=== PATIENT | female | born 1990 | race Caucasian/White ===

== ENCOUNTER 2018-10-07 18:03 | Emergency (ER) | payer SELFPAY ==
--- NOTE | 2018-10-07 19:52 | ER ---
Nurse's Notes [facility] Name: Wendi Oglesby Age: 28 yrs Sex: Female : 1990 Arrival Date: 10/07/2018 Time: 18:05 Bed 26 Private MD: Diagnosis: Presentation: 10/07 18:33 Presenting complaint: Patient states: "A friend gave me what I thought was an energy hb pill, but my sister is a medical special nurse and she told me it was really ecstasy laced with meth and coke. Now I feel numb and extremely horny and shaky and anxious.". Transition of care: patient was not received from another setting of care. Onset of symptoms was October 07, 2018 at 15:30. Risk Assessment: Do you want to hurt yourself or someone else? Patient reports no desire to harm self or others. Care prior to arrival: None. 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 - Social history:: Smoking status: Patient/guardian denies using tobacco. - Ebola Screening: : No symptoms or risks identified at this time. Vital Signs: 18:34 BP 125 / 101; Pulse 99; Resp 16; Temp 97.8; Pulse Ox 99% on R/A; Pain 0/10; hb ED Course: 18:05 Patient arrived in ED. rg4 18:34 Triage completed. hb 18:35 Arm band placed on. hb 19:25 Rafa Vaca MD is Attending Physician. rn Administered Medications: No medications were administered Outcome: 19:52 Eloped from waiting room, before seeing physician Time discovered patient gone: lp1 October 07, 2018 at 19:21 19:52 Patient left the ED. lp1 Signatures: Rafa Vaca MD MD rn Pena, Laura, RN RN lp1 Elizabeth Gleason RN RN hb Oren, Licha rg4
== END 2018-10-07 19:52 | disposition left against medical advice (07) ==
LOC: ER 18:03
DX: Z53.21 Procedure and treatment not carried out due to patient leaving prior to being seen by health care provider (principal)

== ENCOUNTER 2018-11-14 05:08 | Emergency (ER) | payer OTHER ==
[2018-11-14 06:31] LABS: Urine Blood NEGATIVE (NEG); Urine Glucose NEGATIVE (NEG); Urine Protein 2+ (NEG); Urine Specific Gravity >1.030 (1.005-1.030); Urine pH 5.5 (5.0-7.0)
[2018-11-14] MEDS ORDERED: HYDROCODONE/CHLORPHEN 5 ML/OSYR ONE (06:59)
--- NOTE | 2018-11-14 07:21 | EDPHYS ---
Physician Documentation [facility] Name: Wendi Oglesby Age: 28 yrs Sex: Female : 1990 Arrival Date: 11/14/2018 Time: 05:15 Bed 7 Private MD: ED Physician Lloyd Hedrick HPI: 11/14 06:28 This 28 yrs old Female presents to ER via Ambulatory with complaints of Cough.pm1 06:28 The patient or guardian reports cough. Onset: The symptoms/episode began/occurred 2 pm1 week(s) ago. Severity of symptoms: in the emergency department the symptoms are unchanged. Modifying factors: The symptoms are alleviated by OTC cold preparation, the symptoms are aggravated by nothing. Associated signs and symptoms: Pertinent negatives: chest pain, diarrhea, ear ache, fever, rhinorrhea, sore throat, vomiting, shortness of breath. The patient has been recently seen by a physician: with similar presenting complaints, [facility] for same complaint and given prescription for Tessalon Perles . 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 - Social history:: Smoking status: Patient uses tobacco products, smokes one-half pack cigarettes per day. - Ebola Screening: : Patient negative for fever greater than or equal to 101.5 degrees Fahrenheit, and additional compatible Ebola Virus Disease symptoms. ROS: 06:30 Constitutional: Negative for fever, chills, and weight loss, Eyes: Negative for injury, pm1 pain, redness, and discharge, ENT: Negative for injury, pain, and discharge, Neck: Negative for injury, pain, and swelling, Cardiovascular: Negative for chest pain, palpitations, and edema. 06:30 Abdomen/GI: Negative for abdominal pain, nausea, vomiting, diarrhea, and constipation, Back: Negative for injury and pain, : Negative for injury, bleeding, discharge, and swelling, MS/Extremity: Negative for injury and deformity, Skin: Negative for injury, rash, and discoloration, Neuro: Negative for headache, weakness, numbness, tingling, and seizure. 06:30 Respiratory: Positive for cough, Negative for shortness of breath, wheezing. Exam: 06:30 Constitutional: This is a well developed, well nourished patient who is awake, alert, pm1 and in no acute distress. Head/Face: Normocephalic, atraumatic. Eyes: Pupils equal round and reactive to light, extra-ocular motions intact. Lids and lashes normal. Conjunctiva and sclera are non-icteric and not injected. Cornea within normal limits. Periorbital areas with no swelling, redness, or edema. ENT: Nares patent. No nasal discharge, no septal abnormalities noted. Bilteral hearing aids. Tympanic membranes are normal and external auditory canals are clear. Oropharynx with no redness, swelling, or masses, exudates, or evidence of obstruction, uvula midline. Mucous membranes moist. Neck: Trachea midline, no thyromegaly or masses palpated, and no cervical lymphadenopathy. Supple, full range of motion without nuchal rigidity, or vertebral point tenderness. No Meningismus. Chest/axilla: Normal chest wall appearance and motion. Nontender with no deformity. No lesions are appreciated. Cardiovascular: Regular rate and rhythm with a normal S1 and S2. No gallops, murmurs, or rubs. No pulse deficits. Respiratory: Lungs have equal breath sounds bilaterally, clear to auscultation and percussion. No rales, rhonchi or wheezes noted. No increased work of breathing, no retractions or nasal flaring. Abdomen/GI: Soft, non-tender, with normal bowel sounds. No distension or tympany. No guarding or rebound. No evidence of tenderness throughout. Back: No spinal tenderness. No costovertebral tenderness. Full range of motion. Skin: Warm, dry with normal turgor. Normal color with no rashes, no lesions, and no evidence of cellulitis. MS/ Extremity: Pulses equal, no cyanosis. Neurovascular intact. Full, normal range of motion. 06:30 Neuro: Orientation: is normal, Motor: is normal, moves all fours. Vital Signs: 05:35 BP 116 / 87; Pulse 91; Resp 18 S; Temp 97.9(O); Pulse Ox 96% on R/A; Weight 123.38 kg jd3 (R); Height 5 ft. 7 in. (170.18 cm) (R); Pain 10/10; 06:58 BP 117 / 71; Pulse 73; Resp 14; Pulse Ox 98% ; bp 05:35 Body Mass Index 42.60 (123.38 kg, 170.18 cm) jd3 MDM: 06:04 Patient medically screened. pm1 06:31 Data reviewed: vital signs. Data interpreted: Pulse oximetry: on room air is 96 %. pm1 Interpretation: normal. 07:10 ED course: Chest x-ray: No acute cardiopulmonary process. pm1 07:19 Counseling: I had a detailed discussion with the patient and/or guardian regarding: the pm1 historical points, exam findings, and any diagnostic results supporting the discharge/admit diagnosis, lab results, radiology results, the need for outpatient follow up, to return to the emergency department if symptoms worsen or persist or if there are any questions or concerns that arise at home. 11/14 05:49 Order name: Flu; Complete Time: 06:27 [facility] 11/14 06:08 Order name: Urine Dipstick--Ancillary (enter results) [facility] 11/14 05:49 Order name: CXR XRAY [facility] 11/14 06:08 Order name: Urine --Ancillary (enter results) [facility] Administered Medications: 06:50 Drug: Tussionex Pennkinetic ER 5 ml Route: PO; jd3 06:59 Follow up: Response: Marked relief of symptoms bp Disposition: 11/14/18 07:20 Discharged to Home. Impression: Bronchitis, not specified as acute or chronic. - Condition is Stable. - Discharge Instructions: Acute Bronchitis, Adult, How to Use an Inhaler, Steps to Quit Smoking, Viral Respiratory Infection, Pyik-Sw-Enow, Cough, Adult. - Prescriptions for Medrol (Yandel) 4 mg Oral Tablets, Dose Pack - take 1 tablet by ORAL route as directed - follow package instructions; 1 packet. Albuterol Sulfate 90 mcg/actuation - inhale 1-2 puff by INHALATION route every 4-6 hours; 1 Inhaler. Bromfed DM 2- 30-10 mg/5 mL Oral syrup - take 10 milliliter by ORAL route every 4 hours As needed; 200 milliliter. - Medication Reconciliation Form, Thank You Letter, Antibiotic Education, Prescription Opioid Use form. - Follow up: Emergency Department; When: As needed; Reason: Worsening of condition. Follow up: Private Physician; When: 2 - 3 days; Reason: Recheck today's complaints, Continuance of care, Re-evaluation by your physician. - Problem is new. - Symptoms have improved. Signatures: Dispatcher [employer] EDNC Carlos Patino NP PROFESSIONAL ADVISOR pm1 Antonino Can, RN RN jd3 Des David RN RN bp Corrections: (The following items were deleted from the chart) 07:37 07:20 11/14/2018 07:20 Discharged to Home. Impression: Bronchitis, not specified as bp acute or chronic. Condition is Stable. Discharge Instructions: Acute Bronchitis, Adult, How to Use an Inhaler, Steps to Quit Smoking, Viral Respiratory Infection, Ovvp-Km-Htpw, Cough, Adult. Prescriptions for Tessalon Perles 100 mg Oral Capsule - take 1 capsule by ORAL route every 8 hours As needed; 15 capsule, Medrol (Yandel) 4 mg Oral Tablets, Dose Pack - take 1 tablet by ORAL route as directed - follow package instructions; 1 packet, Albuterol Sulfate 90 mcg/actuation - inhale 1-2 puff by INHALATION route every 4-6 hours; 1 Inhaler. and Forms are Medication Reconciliation Form, Thank You Letter, Antibiotic Education, Prescription Opioid Use. Follow up: Emergency Department; When: As needed; Reason: Worsening of condition. Follow up: Private Physician; When: 2 - 3 days; Reason: Recheck today's complaints, Continuance of care, Re-evaluation by your physician. Problem is new. Symptoms have improved. pm1
--- NOTE | 2018-11-14 07:21 | ER ---
Nurse's Notes [facility] Name: Wendi Oglesby Age: 28 yrs Sex: Female : 1990 Arrival Date: 11/14/2018 Time: 05:15 Bed 7 Private MD: Diagnosis: Bronchitis, not specified as acute or chronic Presentation: 11/14 05:29 Presenting complaint: Patient states: "I have had this cough for 2 weeks and it hasn't jd3 gone away. I have been to [facility] and all they did was give me give me Tensilon Pearls and sent home, no tests or nothing. I came here because I know this facility will actually help out figure what is going on and why this cough won't go away.". Transition of care: patient was not received from another setting of care. Onset of symptoms was November 14, 2018. Risk Assessment: Do you want to hurt yourself or someone else? Patient reports no desire to harm self or others. Initial Sepsis Screen: Does the patient meet any 2 criteria? No. Patient's initial sepsis screen is negative. Does the patient have a suspected source of infection? No. Patient's initial sepsis screen is negative. Care prior to arrival: None. 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 - Social history:: Smoking status: Patient uses tobacco products, smokes one-half pack cigarettes per day. - Ebola Screening: : Patient negative for fever greater than or equal to 101.5 degrees Fahrenheit, and additional compatible Ebola Virus Disease symptoms. Screenin:38 Abuse screen: Denies threats or abuse. Nutritional screening: No deficits noted. jd3 Tuberculosis screening: No symptoms or risk factors identified. Fall Risk Ambulatory Aid- None/Bed Rest/Nurse Assist (0 pts). Gait- Normal/Bed Rest/Wheelchair (0 pts) Mental Status- Oriented to own ability (0 pts). Total Burdick Fall Scale indicates No Risk (0-24 pts). Assessment: 05:36 General: Appears in no apparent distress. uncomfortable, Behavior is calm, cooperative, jd3 appropriate for age. Pain: Complains of pain in chest Quality of pain is described as pressure, pt reports pain in the chest because of couging. Neuro: Level of Consciousness is awake, alert, obeys commands, Oriented to person, place, time, situation, Appropriate for age. Cardiovascular: Capillary refill < 3 seconds Patient's skin is warm and dry. Respiratory: Reports cough that is persistent Airway is patent Respiratory effort is even, unlabored, Respiratory pattern is regular, symmetrical, Breath sounds are clear bilaterally. GI: No signs and/or symptoms were reported involving the gastrointestinal system. : No signs and/or symptoms were reported regarding the genitourinary system. EENT: No signs and/or symptoms were reported regarding the EENT system. Derm: Skin is intact, Skin is dry, Skin is normal, Skin temperature is warm. Musculoskeletal: Circulation, motion, and sensation intact. Range of motion: intact in all extremities. 06:57 Reassessment: RECD REPORT FROM MICHELLE BRAGG. 28YO WF P/W COUGH x2 WK. ALL CURRENT ORDERS bp COMPLETED, XRAY RESULTS PENDING FOR DISPO. 07:35 Reassessment: PT D/C HOME AMBULATORY WITH FAMILY, DX WITH BRONCHITIS. bp Vital Signs: 05:35 BP 116 / 87; Pulse 91; Resp 18 S; Temp 97.9(O); Pulse Ox 96% on R/A; Weight 123.38 kg jd3 (R); Height 5 ft. 7 in. (170.18 cm) (R); Pain 10/10; 06:58 BP 117 / 71; Pulse 73; Resp 14; Pulse Ox 98% ; bp 05:35 Body Mass Index 42.60 (123.38 kg, 170.18 cm) jd3 ED Course: 05:15 Patient arrived in ED. es 05:29 Antonino Can, RN is Primary Nurse. jd3 05:33 Triage completed. jd3 05:36 Arm band placed on. jd3 05:39 Patient has correct armband on for positive identification. Bed in low position. Call jd3 light in reach. Side rails up X 1. Adult w/ patient. 06:04 Carlos Patino NP is [facility]. pm1 06:04 Lloyd Hedrick MD is Attending Physician. pm1 06:07 X-ray completed. Portable x-ray completed in exam room. Patient tolerated procedure kw well. 06:08 CXR XRAY In Process Unspecified. EDMS 07:15 No provider procedures requiring assistance completed. Patient did not have IV access bp during this emergency room visit. Administered Medications: 06:50 Drug: Tussionex Pennkinetic ER 5 ml Route: PO; jd3 06:59 Follow up: Response: Marked relief of symptoms bp Outcome: 07:20 Discharge ordered by . pm1 07:36 Discharged to home ambulatory, with family. bp 07:36 Condition: stable 07:36 Discharge instructions given to patient, Instructed on discharge instructions, follow up and referral plans. medication usage, Demonstrated understanding of instructions, follow-up care, medications, Prescriptions given X 3. 07:37 Patient left the ED. bp Signatures: Dispatcher [employer] EDUT Elaine Vega Kimberlee Carlos Patino NP CONSTRUCTION AREA MANAGER pm1 Antonino Can RN RN jd3 Des David, RN RN bp
--- NOTE | 2018-11-14 08:38 | RAD REPORT ---
EXAM DESCRIPTION: Ludmila Single View11/14/2018 6:10 am CLINICAL HISTORY: Cough COMPARISON: None FINDINGS: The lungs appear clear of acute infiltrate. The heart is normal size IMPRESSION: No acute abnormalities displayed
== END 2018-11-14 07:37 | disposition home or self-care (01) ==
LOC: ER 05:08
DX: J40 Bronchitis, not specified as acute or chronic (principal); F32.9 Major depressive disorder, single episode, unspecified; F17.210 Nicotine dependence, cigarettes, uncomplicated; Z88.0 Allergy status to penicillin; Z88.5 Allergy status to narcotic agent
CPT/HCPCS: 71045; 81003; 81025; 87804; 99283

== ENCOUNTER 2019-01-04 12:19 | Emergency (ER) | payer OTHER ==
[2019-01-04 13:17] LABS: Urine Blood NEGATIVE (NEG); Urine Glucose NEGATIVE (NEG); Urine Protein NEGATIVE (NEG)
--- NOTE | 2019-01-04 14:15 | EDPHYS ---
Physician Documentation [facility] Name: Wendi Oglesby Age: 28 yrs Sex: Female : 1990 Arrival Date: 01/04/2019 Time: 12:23 Bed 25 Private MD: ED Physician Lloyd Hedrick HPI: 01/04 14:10 This 28 yrs old Female presents to ER via Ambulatory with complaints of gs Dizziness. 14:10 The patient presents with dizziness. Onset: The symptoms/episode began/occurred gs suddenly. Modifying factors: the symptoms are aggravated by movement of head. Associated signs and symptoms: Pertinent positives: near-syncope. Severity of symptoms: At their worst the symptoms were severe in the emergency department the symptoms have resolved. The patient has experienced similar episodes in the past, a few times. 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 ROS: 14:10 All other systems are negative. gs Exam: 14:10 Head/Face: Normocephalic, atraumatic. Eyes: Pupils equal round and reactive to light, gs extra-ocular motions intact. Lids and lashes normal. Conjunctiva and sclera are non-icteric and not injected. Cornea within normal limits. Periorbital areas with no swelling, redness, or edema. ENT: Nares patent. No nasal discharge, no septal abnormalities noted. Tympanic membranes are normal and external auditory canals are clear. Oropharynx with no redness, swelling, or masses, exudates, or evidence of obstruction, uvula midline. Mucous membranes moist. Neck: Trachea midline, no thyromegaly or masses palpated, and no cervical lymphadenopathy. Supple, full range of motion without nuchal rigidity, or vertebral point tenderness. No Meningismus. Chest/axilla: Normal chest wall appearance and motion. Nontender with no deformity. No lesions are appreciated. Cardiovascular: Regular rate and rhythm with a normal S1 and S2. No gallops, murmurs, or rubs. Normal PMI, no JVD. No pulse deficits. Respiratory: Lungs have equal breath sounds bilaterally, clear to auscultation and percussion. No rales, rhonchi or wheezes noted. No increased work of breathing, no retractions or nasal flaring. Abdomen/GI: Soft, non-tender, with normal bowel sounds. No distension or tympany. No guarding or rebound. No evidence of tenderness throughout. Back: No spinal tenderness. No costovertebral tenderness. Full range of motion. Skin: Warm, dry with normal turgor. Normal color with no rashes, no lesions, and no evidence of cellulitis. MS/ Extremity: Pulses equal, no cyanosis. Neurovascular intact. Full, normal range of motion. Neuro: Awake and alert, GCS 15, oriented to person, place, time, and situation. Cranial nerves II-XII grossly intact. Motor strength 5/5 in all extremities. Sensory grossly intact. Cerebellar exam normal. Normal gait. 14:10 Constitutional: The patient appears alert, awake. Vital Signs: 12:42 BP 113 / 69; Pulse 90; Resp 18; Temp 98.0; Pulse Ox 97% on R/A; Weight 125.19 kg; ph Height 5 ft. 5 in. (165.10 cm); Pain 8/10; 13:32 BP 111 / 61 Supine; Pulse 65; lt1 13:32 BP 116 / 67 Sitting; Pulse 67; lt1 13:32 BP 116 / 77 Standing; Pulse 74; lt1 12:42 Body Mass Index 45.93 (125.19 kg, 165.10 cm) ph MDM: 13:54 Patient medically screened. 14:10 Differential diagnosis: idiopathic dizziness, vertigo. Data reviewed: vital signs, nurses notes. Response to treatment: the patient's symptoms have resolved after treatment, and as a result, I will discharge patient. 01/04 13:08 Order name: Urine Dipstick--Ancillary (enter results); Complete Time: 13:37 bd 01/04 12:56 Order name: Urine Test (obtain specimen); Complete Time: 13:03 01/04 12:56 Order name: Urine Dipstick-Ancillary (obtain specimen); Complete Time: 13:03 01/04 13:08 Order name: Urine --Ancillary (enter results); Complete Time: 13:37 bd Administered Medications: No medications were administered Disposition: 01/04/19 14:15 Discharged to Home. Impression: Benign paroxysmal vertigo. - Condition is Stable. - Discharge Instructions: Benign Positional Vertigo, Form - Return To Work. - Work release form, Medication Reconciliation Form, Thank You Letter, Antibiotic Education, Prescription Opioid Use form. - Follow up: Private Physician; When: 2 - 3 days; Reason: Re-evaluation by your physician. Signatures: Dispatcher [employer] [facility] Martín Youngblood RN RN la1 Sole Ennis RN RN HedrickLloyd MD MD gs Corrections: (The following items were deleted from the chart) 13:08 12:57 UA MICROSCOPIC+U.LAB.BRZ ordered. [facility] EDME 14:27 14:15 01/04/2019 14:15 Discharged to Home. Impression: Benign paroxysmal vertigo. la1 Condition is Stable. Forms are Medication Reconciliation Form, Thank You Letter, Antibiotic Education, Prescription Opioid Use. Follow up: Private Physician; When: 2 - 3 days; Reason: Re-evaluation by your physician. gs
--- NOTE | 2019-01-04 14:15 | ER ---
Nurse's Notes [facility] Name: Wendi Oglesby Age: 28 yrs Sex: Female : 1990 Arrival Date: 01/04/2019 Time: 12:23 Bed 25 Private MD: Diagnosis: Benign paroxysmal vertigo Presentation: 01/04 12:40 Presenting complaint: Patient states: " I almost passed out at work when I stood up and ph they sent me home." Pt reports slight dizziness and pain in medina legs and numbness in medina arms, denies chest pain, SOB. Transition of care: patient was not received from another setting of care. Onset of symptoms was January 04, 2019. Risk Assessment: Do you want to hurt yourself or someone else? Patient reports no desire to harm self or others. Initial Sepsis Screen: Does the patient meet any 2 criteria? No. Patient's initial sepsis screen is negative. Does the patient have a suspected source of infection? No. Patient's initial sepsis screen is negative. Care prior to arrival: None. 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 Screenin:27 Abuse screen: Denies threats or abuse. Nutritional screening: No deficits noted. la1 Tuberculosis screening: No symptoms or risk factors identified. Fall Risk None identified. Assessment: 14:27 General: Appears in no apparent distress. Behavior is calm, cooperative. Pain: Denies la1 pain. Neuro: Level of Consciousness is awake, alert, obeys commands, Oriented to person, place, time, situation. Cardiovascular: Capillary refill < 3 seconds Patient's skin is warm and dry. Respiratory: Airway is patent Respiratory effort is even, unlabored, Respiratory pattern is regular, symmetrical. GI: No signs and/or symptoms were reported involving the gastrointestinal system. : No signs and/or symptoms were reported regarding the genitourinary system. Vital Signs: 12:42 BP 113 / 69; Pulse 90; Resp 18; Temp 98.0; Pulse Ox 97% on R/A; Weight 125.19 kg; ph Height 5 ft. 5 in. (165.10 cm); Pain 8/10; 13:32 BP 111 / 61 Supine; Pulse 65; lt1 13:32 BP 116 / 67 Sitting; Pulse 67; lt1 13:32 BP 116 / 77 Standing; Pulse 74; lt1 12:42 Body Mass Index 45.93 (125.19 kg, 165.10 cm) ph ED Course: 12:23 Patient arrived in ED. tw3 12:40 Martín Youngblood, RN is Primary Nurse. la1 12:42 Triage completed. ph 12:44 Arm band placed on. 12:50 Lloyd Hedrick MD is Attending Physician. 14:27 Call light in reach. la1 14:27 No provider procedures requiring assistance completed. Patient did not have IV access la1 during this emergency room visit. Administered Medications: No medications were administered Outcome: 14:15 Discharge ordered by . 14:27 Patient left the ED. la1 Signatures: Martín Youngblood RN RN la1 Sole Ennis RN RN Waed, [facility] tw3 Lloyd Hedrick MD MD [facility]
== END 2019-01-04 14:27 | disposition home or self-care (01) ==
LOC: ER 12:19
DX: H81.10 Benign paroxysmal vertigo, unspecified ear (principal); F32.9 Major depressive disorder, single episode, unspecified; Z88.0 Allergy status to penicillin; Z88.5 Allergy status to narcotic agent
CPT/HCPCS: 81003; 81025; 99281

== ENCOUNTER 2019-03-11 22:16 | Emergency (ER) | payer OTHER ==
--- OUTSIDE RECORDS SUMMARY | 2019-03-11 22:19 | XMS REPORT ---
:1990 Author [facility] Address [address] [place] [address] Dr. Orozco [address] [place] [id number] Care Team Providers Name Role Phone Unavailable Unavailable Unavailable Problems This patient has no known problems. Allergies, Adverse Reactions, Alerts This patient has no known allergies or adverse reactions. Medications This patient has no known medications.
--- NOTE | 2019-03-11 22:50 | EDPHYS ---
Physician Documentation [facility] Name: Wendi Oglesby Age: 28 yrs Sex: Female : 1990 Arrival Date: 03/11/2019 Time: 22:17 Bed 13 Private MD: ED Physician Zaid Cooley HPI: 03/11 22:39 This 28 yrs old Female presents to ER via Ambulatory with complaints of Mood michael Issue- Out of Medicine. 22:39 The patient presents to the emergency department with anxiety, depression. Onset: The michael symptoms/episode began/occurred today. Past psychiatric history: Prior diagnosis: depression, Psychiatric medications include: trazadon. Associated signs and symptoms: The patient has no apparent associated signs or symptoms. Severity of symptoms: At their worst the symptoms were mild in the emergency department the symptoms are unchanged. The patient has experienced similar episodes in the past, several times. 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 - Social history:: Smoking status: Patient uses tobacco products, smokes one-half pack cigarettes per day. - Ebola Screening: : No symptoms or risks identified at this time. - Family history:: not pertinent. ROS: 22:39 Constitutional: Negative for fever, chills, and weight loss, Eyes: Negative for injury, michael pain, redness, and discharge, ENT: Negative for injury, pain, and discharge, Neck: Negative for injury, pain, and swelling, Cardiovascular: Negative for chest pain, palpitations, and edema, Respiratory: Negative for shortness of breath, cough, wheezing, and pleuritic chest pain, Abdomen/GI: Negative for abdominal pain, nausea, vomiting, diarrhea, and constipation, Back: Negative for injury and pain, : Negative for injury, bleeding, discharge, and swelling, MS/Extremity: Negative for injury and deformity, Skin: Negative for injury, rash, and discoloration, Neuro: Negative for headache, weakness, numbness, tingling, and seizure, Allergy/Immunology: Negative for hives, rash, and allergies, Endocrine: Negative for neck swelling, polydipsia, polyuria, polyphagia, and marked weight changes, Hematologic/Lymphatic: Negative for swollen nodes, abnormal bleeding, and unusual bruising. 22:39 Psych: Positive for anxiety, depression, insomnia. Exam: 22:39 Constitutional: This is a well developed, well nourished patient who is awake, alert, michael and in no acute distress. Head/Face: Normocephalic, atraumatic. Eyes: Pupils equal round and reactive to light, extra-ocular motions intact. Lids and lashes normal. Conjunctiva and sclera are non-icteric and not injected. Cornea within normal limits. Periorbital areas with no swelling, redness, or edema. ENT: Nares patent. No nasal discharge, no septal abnormalities noted. Tympanic membranes are normal and external auditory canals are clear. Oropharynx with no redness, swelling, or masses, exudates, or evidence of obstruction, uvula midline. Mucous membranes moist. Neck: Trachea midline, no thyromegaly or masses palpated, and no cervical lymphadenopathy. Supple, full range of motion without nuchal rigidity, or vertebral point tenderness. No Meningismus. Chest/axilla: Normal chest wall appearance and motion. Nontender with no deformity. No lesions are appreciated. Cardiovascular: Regular rate and rhythm with a normal S1 and S2. No gallops, murmurs, or rubs. Normal PMI, no JVD. No pulse deficits. Respiratory: Lungs have equal breath sounds bilaterally, clear to auscultation and percussion. No rales, rhonchi or wheezes noted. No increased work of breathing, no retractions or nasal flaring. Abdomen/GI: Soft, non-tender, with normal bowel sounds. No distension or tympany. No guarding or rebound. No evidence of tenderness throughout. Back: No spinal tenderness. No costovertebral tenderness. Full range of motion. Skin: Warm, dry with normal turgor. Normal color with no rashes, no lesions, and no evidence of cellulitis. MS/ Extremity: Pulses equal, no cyanosis. Neurovascular intact. Full, normal range of motion. Neuro: Awake and alert, GCS 15, oriented to person, place, time, and situation. Cranial nerves II-XII grossly intact. Motor strength 5/5 in all extremities. Sensory grossly intact. Cerebellar exam normal. Normal gait. 22:39 Psych: Behavior/mood is pleasant, Affect is calm, Oriented to person, place, time, Patient has no thoughts/intents to harm self or others. Judgement / Insight is normal. Memory is normal. Delusions/hallucinations are not present. Vital Signs: 22:32 BP 146 / 92; Pulse 98; Resp 18; Temp 97.6; Pulse Ox 100% on R/A; Weight 120.2 kg (R); ak1 Height 5 ft. 7 in. (170.18 cm) (R); Pain 0/10; 22:32 Body Mass Index 41.50 (120.20 kg, 170.18 cm) ak1 MDM: 22:31 Patient medically screened. [facility] 22:44 Data reviewed: vital signs, nurses notes. [facility] Administered Medications: 23:14 Drug: traZODONE 50 mg Route: PO; [facility] 23:14 Follow up: Response: Medication administered at discharge. 4 Disposition: 03/11/19 22:50 Discharged to Home. Impression: Major depressive disorder, recurrent, Anxiety disorder, unspecified. - Condition is Stable. - Discharge Instructions: Panic Attacks, Arthritis, Insomnia, Arthritis, [id number], Panic Attacks, Dbiy-sk-Wbam, Major Depressive Disorder. - Prescriptions for trazodone 50 mg Oral tablet - take 1 tablet by ORAL route one time; 30 tablet. Mobic 7.5 mg Oral Tablet - take 1 tablet by ORAL route once daily take with food; 20 tablet. - Medication Reconciliation Form, Thank You Letter, Antibiotic Education, Prescription Opioid Use, Work release form form. - Follow up: Private Physician; When: 2 - 3 days; Reason: Recheck today's complaints, Continuance of care, Re-evaluation by your physician. Follow up: Gwendolyn Vincent MD; When: 2 - 3 days; Reason: Recheck today's complaints, Continuance of care, Re-evaluation by your physician. - Problem is new. - Symptoms have improved. Signatures: Zaid Cooley MD MD cha Krenek, Amber, RN RN ak1 Malcolm Tsang RN RN jb4 Corrections: (The following items were deleted from the chart) 23:16 22:50 03/11/2019 22:50 Discharged to Home. Impression: Major depressive disorder, jb4 recurrent; Anxiety disorder, unspecified. Condition is Stable. Forms are Medication Reconciliation Form, Thank You Letter, Antibiotic Education, Prescription Opioid Use. Follow up: Private Physician; When: 2 - 3 days; Reason: Recheck today's complaints, Continuance of care, Re-evaluation by your physician. Follow up: Gwendolyn Vincent; When: 2 - 3 days; Reason: Recheck today's complaints, Continuance of care, Re-evaluation by your physician. Problem is new. Symptoms have improved. michael
--- NOTE | 2019-03-11 22:50 | ER ---
Nurse's Notes [facility] Name: Wendi Oglesby Age: 28 yrs Sex: Female : 1990 Arrival Date: 03/11/2019 Time: 22:17 Bed 13 Private MD: Diagnosis: Major depressive disorder, recurrent;Anxiety disorder, unspecified Presentation: 03/11 22:32 Presenting complaint: Patient states: out of trazodone medication and meloxicam ak1 medication. pt had an "episode at work" and can not return with out doctor note. Transition of care: patient was not received from another setting of care. Onset of symptoms is unknown. Risk Assessment: Do you want to hurt yourself or someone else? Patient reports no desire to harm self or others. Initial Sepsis Screen: Does the patient meet any 2 criteria? No. Patient's initial sepsis screen is negative. Does the patient have a suspected source of infection? No. Patient's initial sepsis screen is negative. Note pt stated she has an appointment with her PCP Dr. Vincent 04/02/19. Care prior to arrival: None. 22:32 Method Of Arrival: Ambulatory ak1 22:32 Acuity: SAURAV 5 ak1 Triage Assessment: 22:34 General: Appears in no apparent distress. Behavior is calm, cooperative. Pain: Denies ak1 pain. EENT: No signs and/or symptoms were reported regarding the EENT system. Neuro: Level of Consciousness is awake, alert, obeys commands, Oriented to person, place, time, situation, Scouring Train Operator Chief are equal bilaterally Moves all extremities. Gait is steady, Speech is normal. Cardiovascular: No deficits noted. Respiratory: No deficits noted. GI: No signs and/or symptoms were reported involving the gastrointestinal system. : No signs and/or symptoms were reported regarding the genitourinary system. Derm: No signs and/or symptoms reported regarding the dermatologic system. Musculoskeletal: No signs and/or symptoms reported regarding the musculoskeletal system. 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 - Social history:: Smoking status: Patient uses tobacco products, smokes one-half pack cigarettes per day. - Ebola Screening: : No symptoms or risks identified at this time. - Family history:: not pertinent. Screenin:35 Abuse screen: Denies threats or abuse. Denies injuries from another. Nutritional ak1 screening: No deficits noted. Tuberculosis screening: No symptoms or risk factors identified. Fall Risk None identified. Assessment: 23:15 General: Appears in no apparent distress. comfortable, Behavior is calm, cooperative, jb4 appropriate for age. Pain: Denies pain. Neuro: Level of Consciousness is awake, alert, obeys commands, Oriented to person, place, time, situation. Cardiovascular: Patient's skin is warm and dry. Respiratory: Airway is patent Respiratory effort is even, unlabored, Respiratory pattern is regular, symmetrical. GI: No signs and/or symptoms were reported involving the gastrointestinal system. : No signs and/or symptoms were reported regarding the genitourinary system. EENT: No signs and/or symptoms were reported regarding the EENT system. Derm: Skin is intact, Skin is pink, warm \\T\\ dry. Musculoskeletal: Circulation, motion, and sensation intact. Range of motion: intact in all extremities. Vital Signs: 22:32 BP 146 / 92; Pulse 98; Resp 18; Temp 97.6; Pulse Ox 100% on R/A; Weight 120.2 kg (R); ak1 Height 5 ft. 7 in. (170.18 cm) (R); Pain 0/10; 22:32 Body Mass Index 41.50 (120.20 kg, 170.18 cm) ak1 ED Course: 22:17 Patient arrived in ED. ds1 22:31 Zaid Cooley MD is Attending Physician. michael 22:34 Triage completed. ak1 22:34 Arm band placed on Patient placed in an exam room, on a stretcher, Patient notified of ak1 wait time. 22:35 Patient has correct armband on for positive identification. Bed in low position. Call ak1 light in reach. Side rails up X 1. Adult w/ patient. Pulse ox on. Sitter at bedside. 22:46 Gwendolyn Vincent MD is Referral Physician. [facility] 22:51 Malcolm Tsang, RN is Primary Nurse. jb4 23:15 No provider procedures requiring assistance completed. Patient did not have IV access jb4 during this emergency room visit. Administered Medications: 23:14 Drug: traZODONE 50 mg Route: PO; jb4 23:14 Follow up: Response: Medication administered at discharge. jb4 Outcome: 22:50 Discharge ordered by . michael 23:15 Discharged to home ambulatory, with family. jb4 23:15 Condition: stable 23:15 Discharge instructions given to patient, Instructed on discharge instructions, follow up and referral plans. medication usage, Demonstrated understanding of instructions, follow-up care, medications, Prescriptions given X 2. 23:16 Patient left the ED. jb4 Signatures: Zaid Cooley MD MD cha Sanford, Demi ds1 Taylor Liu, RN RN ak1 Malcolm Tsang, RN RN jb4
[2019-03-11] MEDS ORDERED: TRAZODONE 50 MG TABLET ONE (23:21)
[2019-03-12] MEDS ORDERED: HYDROCODONE/APAP 5/325 MG TAB ONE (01:28)
== END 2019-03-11 23:16 | disposition home or self-care (01) ==
LOC: ER 22:16
DX: F41.9 Anxiety disorder, unspecified (principal); F33.9 Major depressive disorder, recurrent, unspecified; Z88.5 Allergy status to narcotic agent; Z88.0 Allergy status to penicillin; F17.210 Nicotine dependence, cigarettes, uncomplicated
CPT/HCPCS: 99284

== ENCOUNTER 2019-03-17 18:25 | Emergency (ER) | payer OTHER ==
--- OUTSIDE RECORDS SUMMARY | 2019-03-17 18:27 | XMS REPORT ---
:1990 [facility] [address] [place] [address] Dr. Orozco [address] [place] [address] Care Team Providers Name Role Phone Unavailable Unavailable Unavailable Problems This patient has no known problems. Allergies, Adverse Reactions, Alerts This patient has no known allergies or adverse reactions. Medications This patient has no known medications.
--- NOTE | 2019-03-17 19:07 | EDPHYS ---
Physician Documentation [facility] Name: Wendi Oglesby Age: 28 yrs Sex: Female : 1990 Arrival Date: 03/17/2019 Time: 18:30 Bed 19 Private MD: Gwendolyn Vincent ED Physician Myles Bailey HPI: 03/17 19:14 This 28 yrs old Female presents to ER via Ambulatory with complaints of kb Anxiety. 19:14 Pt presents for refill of trazadone. States she has been out for almost a month. kb Reports insomnia and yelling at family members. Has an appt with PCP for refill on 04/02/19 but cannot wait any longer. . The patient has not experienced similar symptoms in the past. The patient has not recently seen a physician. Historical: - Allergies: 18:31 Codeine; hj 18:31 PENICILLINS; hj - Home Meds: 19:05 Benadryl Oral [Active]; clonazepam 1 mg Oral tab [Active]; hydroxyzine HCl 25 mg Oral cc3 tab [Active]; Melatonin Oral [Active]; trazodone 50 mg Oral tab [Active]; - PMHx: 18:31 Anxiety; Depression; hj - PSHx: 18:31 None; hj - Immunization history:: Adult Immunizations not up to date. - Social history:: Smoking status: unknown. - Ebola Screening: : No symptoms or risks identified at this time. ROS: 19:13 Constitutional: Negative for fever, chills, and weight loss, Neck: Negative for injury, kb pain, and swelling, Cardiovascular: Negative for chest pain, palpitations, and edema, Respiratory: Negative for shortness of breath, cough, wheezing, and pleuritic chest pain, Abdomen/GI: Negative for abdominal pain, nausea, vomiting, diarrhea, and constipation, Back: Negative for injury and pain, MS/Extremity: Negative for injury and deformity, Skin: Negative for injury, rash, and discoloration, Neuro: Negative for headache, weakness, numbness, tingling, and seizure, Psych: Negative for depression, anxiety, suicide ideation, homicidal ideation, and hallucinations. Exam: 19:13 Constitutional: This is a well developed, well nourished patient who is awake, alert, kb and in no acute distress. Head/Face: Normocephalic, atraumatic. ENT: Nares patent. No nasal discharge, no septal abnormalities noted. Tympanic membranes are normal and external auditory canals are clear. Oropharynx with no redness, swelling, or masses, exudates, or evidence of obstruction, uvula midline. Mucous membranes moist. Neck: Trachea midline, no thyromegaly or masses palpated, and no cervical lymphadenopathy. Supple, full range of motion without nuchal rigidity, or vertebral point tenderness. No Meningismus. Chest/axilla: Normal chest wall appearance and motion. Nontender with no deformity. No lesions are appreciated. Cardiovascular: Regular rate and rhythm with a normal S1 and S2. No gallops, murmurs, or rubs. Normal PMI, no JVD. No pulse deficits. Respiratory: Lungs have equal breath sounds bilaterally, clear to auscultation and percussion. No rales, rhonchi or wheezes noted. No increased work of breathing, no retractions or nasal flaring. Abdomen/GI: Soft, non-tender, with normal bowel sounds. No distension or tympany. No guarding or rebound. No evidence of tenderness throughout. Skin: Warm, dry with normal turgor. Normal color with no rashes, no lesions, and no evidence of cellulitis. MS/ Extremity: Pulses equal, no cyanosis. Neurovascular intact. Full, normal range of motion. Neuro: Awake and alert, GCS 15, oriented to person, place, time, and situation. Cranial nerves II-XII grossly intact. Motor strength 5/5 in all extremities. Sensory grossly intact. Cerebellar exam normal. Normal gait. Psych: Awake, alert, with orientation to person, place and time. Behavior, mood, and affect are within normal limits. Vital Signs: 18:32 BP 113 / 63; Pulse 90; Resp 18; Temp 97.4(TE); Pulse Ox 100% on R/A; Weight 120.2 kg; hj Height 5 ft. 7 in. (170.18 cm); Pain 0/10; 19:15 BP 110 / 67; Pulse 89; Resp 17 S; Pulse Ox 100% on R/A; cc3 18:32 Body Mass Index 41.50 (120.20 kg, 170.18 cm) MDM: 18:43 Patient medically screened. kb 19:13 Data reviewed: vital signs, nurses notes. Data interpreted: Pulse oximetry: on room air kb is 100 %. Interpretation: normal. Counseling: I had a detailed discussion with the patient and/or guardian regarding: the historical points, exam findings, and any diagnostic results supporting the discharge/admit diagnosis, the need for outpatient follow up, a family practitioner, to return to the emergency department if symptoms worsen or persist or if there are any questions or concerns that arise at home. Administered Medications: No medications were administered Disposition: 21:31 Co-signature as Attending Physician, Myles Bailey MD I agree with the assessment and kdr plan of care. Disposition: 03/17/19 19:06 Discharged to Home. Impression: Encounter for issue of repeat prescription. - Condition is Stable. - Discharge Instructions: Medicine Refill at the Emergency Department. - Prescriptions for trazodone 50 mg Oral tablet - take 1 tablet by ORAL route Every night; 4 tablet. - Medication Reconciliation Form, Thank You Letter, Antibiotic Education, Prescription Opioid Use form. - Follow up: Emergency Department; When: As needed; Reason: Worsening of condition. Follow up: Gwendolyn Vincent MD; When: 2 - 3 days; Reason: Recheck today's complaints, Continuance of care, Re-evaluation by your physician. Signatures: Ewa Vera, ANGELA-C HAND HARDENER-Myles Petty MD MD kdr Maldonado Victoria RN RN Riane Neal cc3 Corrections: (The following items were deleted from the chart) 19:47 19:06 03/17/2019 19:06 Discharged to Home. Impression: Encounter for issue of repeat cc3 prescription. Condition is Stable. Forms are Medication Reconciliation Form, Thank You Letter, Antibiotic Education, Prescription Opioid Use. Follow up: Emergency Department; When: As needed; Reason: Worsening of condition. Follow up: Gwendolyn Vincent; When: 2 - 3 days; Reason: Recheck today's complaints, Continuance of care, Re-evaluation by your physician. kb
--- NOTE | 2019-03-17 19:07 | ER ---
Nurse's Notes [facility] Name: Wendi Oglesby Age: 28 yrs Sex: Female : 1990 Arrival Date: 03/17/2019 Time: 18:30 Bed 19 Private MD: Gwendolyn Vincent Diagnosis: Encounter for issue of repeat prescription Presentation: 03/17 18:29 Presenting complaint: Patient states: i was out of my anxiety meds, trazodone 50 mg for hj almost a month now, i feel iffy, denies SI, and homicidal thoughts; i dont have an appt with my PCP till the 15 of this month;. Transition of care: patient was not received from another setting of care. Onset of symptoms was March 17, 2019. Risk Assessment: Do you want to hurt yourself or someone else? Patient reports no desire to harm self or others. Initial Sepsis Screen: Does the patient meet any 2 criteria? No. Patient's initial sepsis screen is negative. Does the patient have a suspected source of infection? No. Patient's initial sepsis screen is negative. Care prior to arrival: None. 18:29 Method Of Arrival: Ambulatory 18:29 Acuity: SAURAV 5 hj Triage Assessment: 19:05 General: Appears in no apparent distress. comfortable, Behavior is calm, cooperative, cc3 appropriate for age. Pain: Denies pain. Historical: - Allergies: 18:31 Codeine; hj 18:31 PENICILLINS; hj - Home Meds: 19:05 Benadryl Oral [Active]; clonazepam 1 mg Oral tab [Active]; hydroxyzine HCl 25 mg Oral cc3 tab [Active]; Melatonin Oral [Active]; trazodone 50 mg Oral tab [Active]; - PMHx: 18:31 Anxiety; Depression; hj - PSHx: 18:31 None; hj - Immunization history:: Adult Immunizations not up to date. - Social history:: Smoking status: unknown. - Ebola Screening: : No symptoms or risks identified at this time. Screenin:05 Abuse screen: Denies threats or abuse. Denies injuries from another. Nutritional cc3 screening: No deficits noted. Tuberculosis screening: No symptoms or risk factors identified. Fall Risk Ambulatory Aid- None/Bed Rest/Nurse Assist (0 pts). Gait- Normal/Bed Rest/Wheelchair (0 pts) Mental Status- Oriented to own ability (0 pts). Assessment: 19:05 General: Appears in no apparent distress. comfortable, Behavior is calm, cooperative, cc3 appropriate for age. Pain: Denies pain. Neuro: Level of Consciousness is awake, alert, obeys commands, Oriented to person, place, time, situation, Appropriate for age. Cardiovascular: Denies chest pain. Respiratory: Airway is patent Respiratory effort is even, unlabored, Respiratory pattern is regular, symmetrical. GI: Abdomen is round obese. : No signs and/or symptoms were reported regarding the genitourinary system. EENT: No signs and/or symptoms were reported regarding the EENT system. Derm: Skin is intact, is healthy with good turgor, Skin is pink, warm \T\ dry. normal. Musculoskeletal: Circulation, motion, and sensation intact. Range of motion: intact in all extremities. 19:40 Reassessment: Patient appears in no apparent distress at this time. Patient and/or cc3 family updated on plan of care and expected duration. Pain level reassessed. Patient is alert, oriented x 3, equal unlabored respirations, skin warm/dry/pink. EDMUND Vera discharged the patient home with prescription given. No IV cannula in situ. Patient left ER vitally stable and ambulatory. No valuables left in the patient's room. Patient denies pain at this time. Vital Signs: 18:32 BP 113 / 63; Pulse 90; Resp 18; Temp 97.4(TE); Pulse Ox 100% on R/A; Weight 120.2 kg; hj Height 5 ft. 7 in. (170.18 cm); Pain 0/10; 19:15 BP 110 / 67; Pulse 89; Resp 17 S; Pulse Ox 100% on R/A; cc3 18:32 Body Mass Index 41.50 (120.20 kg, 170.18 cm) ED Course: 18:30 Patient arrived in ED. dp 18:31 Gwendolyn Vincent MD is Private Physician. dp 18:31 Triage completed. hj 18:32 Arm band placed on left wrist. hj 18:36 Sole Ennis RN is Primary Nurse. ph 18:43 Ewa Vera F[facility]-C [facility]. kb 18:43 Rafa Vaca MD is Attending Physician. kb 19:05 Patient has correct armband on for positive identification. Bed in low position. Call cc3 light in reach. Side rails up X 1. Pulse ox on. NIBP on. 19:06 Myles Bailey MD is Attending Physician. kb 19:06 Gwendolyn Vincent MD is Referral Physician. kb 19:40 No provider procedures requiring assistance completed. Patient did not have IV access cc3 during this emergency room visit. Administered Medications: No medications were administered Outcome: : Discharge ordered by MD. kb 19:40 Discharged to home ambulatory, with friend. cc3 19:40 Condition: stable 19:40 Discharge instructions given to patient, Instructed on discharge instructions, follow up and referral plans. medication usage, Demonstrated understanding of instructions, follow-up care, medications, Prescriptions given X 1. 19:47 Patient left the ED. cc3 Signatures: Ewa Vera, PLUG SHAPER HAND-C PLUG SHAPER HAND-CkSole Galvan RN RN Maldonado Victoria RN RN Raine Roldan cc3 Obi Mcclain Corrections: (The following items were deleted from the chart) 18:32 18:29 Presenting complaint: Patient states: i was out of my anxiety meds, trazodone 50 hj mg for almost a month now, i feel iffy, denies SI, and homicidal thoughts; 18:33 18:29 Acuity: SAURAV 4 hj 18:33 18:32 Pulse 90bpm; Resp 18bpm; Pulse Ox 100% RA; Temp 97.4F Temporal; 120.2 kg; Height 5 ft. 7 in.; BMI: 41.5; Pain 0/10; hj
== END 2019-03-17 19:47 | disposition home or self-care (01) ==
LOC: ER 18:25
DX: Z76.0 Encounter for issue of repeat prescription (principal); F41.9 Anxiety disorder, unspecified; F32.9 Major depressive disorder, single episode, unspecified
CPT/HCPCS: 99283

== ENCOUNTER 2019-03-29 00:21 | Emergency (ER) | payer OTHER ==
--- OUTSIDE RECORDS SUMMARY | 2019-03-29 00:24 | XMS REPORT ---
:1990 [facility] Address [address] [place] [address] Dr. Orozco [address] [place] [id number] Care Team Providers Name Role Phone Unavailable Unavailable Unavailable Problems This patient has no known problems. Allergies, Adverse Reactions, Alerts This patient has no known allergies or adverse reactions. Medications This patient has no known medications.
--- NOTE | 2019-03-29 01:14 | ER ---
Nurse's Notes [facility] Name: Wendi Oglesby Age: 28 yrs Sex: Female : 1990 Arrival Date: 03/29/2019 Time: 00:24 Bed 14 Private MD: Diagnosis: Encounter for screening, unspecified Presentation: 03/29 00:33 Presenting complaint: Patient states: I woke up in tears severe tooth pain on the left jb4 upper side of my mouth. I am also out of trazodone. Transition of care: patient was not received from another setting of care. Onset of symptoms was March 29, 2019. Risk Assessment: Do you want to hurt yourself or someone else? Patient reports no desire to harm self or others. Initial Sepsis Screen: Does the patient meet any 2 criteria? No. Patient's initial sepsis screen is negative. Does the patient have a suspected source of infection? No. Patient's initial sepsis screen is negative. Care prior to arrival: None. 00:33 Method Of Arrival: Ambulatory jb4 00:33 Acuity: SAURAV 4 jb4 Historical: - Allergies: 00:35 Codeine; jb4 00:35 PENICILLINS; jb4 - Home Meds: 00:35 Benadryl Oral [Active]; clonazepam 1 mg Oral tab [Active]; hydroxyzine HCl 25 mg Oral jb4 tab [Active]; Melatonin Oral [Active]; trazodone 50 mg Oral tab [Active]; - PMHx: 00:35 Depression; Anxiety; jb4 - PSHx: 00:35 None; jb4 - Immunization history:: Adult Immunizations not up to date. - Social history:: Smoking status: Patient uses tobacco products, smokes one-half pack cigarettes per day, Patient uses alcohol, occasionally. - Ebola Screening: : No symptoms or risks identified at this time. Screenin:41 Abuse screen: Denies threats or abuse. Nutritional screening: No deficits noted. jb4 Tuberculosis screening: No symptoms or risk factors identified. Fall Risk None identified. Assessment: 00:41 General: Appears in no apparent distress. uncomfortable, Behavior is calm, cooperative, jb4 appropriate for age. Pain: Complains of pain in mouth Pain does not radiate. Pain currently is 10 out of 10 on a pain scale. Quality of pain is described as aching, stabbing, throbbing, Pain began 1 hour ago. Is continuous. Neuro: Level of Consciousness is awake, alert, obeys commands, Oriented to person, place, time, situation. Cardiovascular: Patient's skin is warm and dry. Respiratory: Airway is patent Respiratory effort is even, unlabored, Respiratory pattern is regular, symmetrical. GI: No deficits noted. No signs and/or symptoms were reported involving the gastrointestinal system. : No deficits noted. No signs and/or symptoms were reported regarding the genitourinary system. EENT: Poor dentition noted. Dental caries noted in upper left first molar (#14) Reports pain in mouth. Derm: Skin is intact, Skin is pink, warm \T\ dry. Musculoskeletal: Circulation, motion, and sensation intact. Range of motion: intact in all extremities. 01:07 Reassessment: Patient appears in no apparent distress at this time. Patient and/or jb4 family updated on plan of care and expected duration. Pain level reassessed. Patient is alert, oriented x 3, equal unlabored respirations, skin warm/dry/pink. Pt Left ED after providers decision to MED screen. Vital Signs: 00:35 BP 137 / 90; Pulse 94; Resp 16; Temp 98.3; Pulse Ox 94% on R/A; Weight 121.56 kg (R); jb4 Height 5 ft. 7 in. (170.18 cm) (R); Pain 10/10; 00:35 Body Mass Index 41.97 (121.56 kg, 170.18 cm) jb4 ED Course: 00:24 Patient arrived in ED. ds1 00:24 Malcolm Tsang RN is Primary Nurse. jb4 00:31 Lloyd Hedrick MD is Attending Physician. gs 00:34 Triage completed. jb4 00:35 Arm band placed on left wrist. jb4 00:41 Patient has correct armband on for positive identification. Bed in low position. Call jb4 light in reach. Side rails up X 1. Pulse ox on. NIBP on. 01:07 No provider procedures requiring assistance completed. Patient did not have IV access jb4 during this emergency room visit. Administered Medications: No medications were administered Outcome: 01:07 Medical screen evaluation completed per provider. Patient declined treatment. jb4 :07 Condition: stable 01:07 Following a medical screening exam, the patient was provided information regarding alternative care sites and resources available per registration personnel. 01:14 Discharge ordered by . marilyn 01:17 Patient left the ED. jb4 Signatures: Yennifer Lewis1 Malcolm Tsang RN RN jb4 Lloyd Hedrick MD MD gs Corrections: (The following items were deleted from the chart) 00:41 00:33 Presenting complaint: Patient states: I woke up in tears severe tooth pain on the jb4 left upper side of my mouth. jb4
--- NOTE | 2019-03-29 01:14 | EDPHYS ---
Physician Documentation [facility] Name: Wendi Oglesby Age: 28 yrs Sex: Female : 1990 Arrival Date: 03/29/2019 Time: 00:24 Bed 14 Private MD: ED Physician Lloyd Hedrick HPI: 03/29 00:46 This 28 yrs old Female presents to ER via Ambulatory with complaints of gs Dental Pain. 00:46 The patient presents with broken tooth/teeth, pain. The problem is located in the upper gs left first molar and upper left second molar. Onset: The symptoms/episode began/occurred 1 week(s) ago. Duration: The symptoms are intermittent. Modifying factors: the symptoms are aggravated by chewing. Associated signs and symptoms: Pertinent negatives: dysphagia, fever, swelling. Severity of symptoms: At their worst the symptoms were moderate, in the emergency department the symptoms are unchanged. The patient has experienced similar episodes in the past, a few times. Historical: - Allergies: 00:35 Codeine; jb4 00:35 PENICILLINS; jb4 - Home Meds: 00:35 Benadryl Oral [Active]; clonazepam 1 mg Oral tab [Active]; hydroxyzine HCl 25 mg Oral jb4 tab [Active]; Melatonin Oral [Active]; trazodone 50 mg Oral tab [Active]; - PMHx: 00:35 Depression; Anxiety; jb4 - PSHx: 00:35 None; jb4 - Immunization history:: Adult Immunizations not up to date. - Social history:: Smoking status: Patient uses tobacco products, smokes one-half pack cigarettes per day, Patient uses alcohol, occasionally. - Ebola Screening: : No symptoms or risks identified at this time. ROS: 00:46 All other systems are negative. gs Exam: 00:46 Head/Face: Normocephalic, atraumatic. Eyes: Pupils equal round and reactive to light, gs extra-ocular motions intact. Lids and lashes normal. Conjunctiva and sclera are non-icteric and not injected. Cornea within normal limits. Periorbital areas with no swelling, redness, or edema. Neck: Trachea midline, no thyromegaly or masses palpated, and no cervical lymphadenopathy. Supple, full range of motion without nuchal rigidity, or vertebral point tenderness. No Meningismus. Chest/axilla: Normal chest wall appearance and motion. Nontender with no deformity. No lesions are appreciated. Cardiovascular: Regular rate and rhythm with a normal S1 and S2. No gallops, murmurs, or rubs. Normal PMI, no JVD. No pulse deficits. Respiratory: Lungs have equal breath sounds bilaterally, clear to auscultation and percussion. No rales, rhonchi or wheezes noted. No increased work of breathing, no retractions or nasal flaring. Abdomen/GI: Soft, non-tender, with normal bowel sounds. No distension or tympany. No guarding or rebound. No evidence of tenderness throughout. Back: No spinal tenderness. No costovertebral tenderness. Full range of motion. 00:46 Constitutional: The patient appears alert, awake. 00:46 ENT: Dental exam: dental caries, that is mild, specifically in the upper left second molar (#15), fractured teeth are noted, specifically the upper left first molar (#14), gum swelling, not appreciated. Vital Signs: 00:35 BP 137 / 90; Pulse 94; Resp 16; Temp 98.3; Pulse Ox 94% on R/A; Weight 121.56 kg (R); jb4 Height 5 ft. 7 in. (170.18 cm) (R); Pain 10/10; 00:35 Body Mass Index 41.97 (121.56 kg, 170.18 cm) jb4 MDM: 00:44 Patient medically screened. 00:46 Differential diagnosis: dental caries, dental abscess. Data reviewed: vital signs, nurses notes. Counseling: I had a detailed discussion with the patient and/or guardian regarding: the historical points, exam findings, and any diagnostic results supporting the discharge/admit diagnosis, the need for outpatient follow up, a dentist. Administered Medications: No medications were administered Disposition: 03/29/19 01:14 Discharged to Home. Impression: Encounter for screening, unspecified. - Condition is Stable. - Medication Reconciliation Form, Thank You Letter, Antibiotic Education, Prescription Opioid Use form. - Follow up: Private Physician; When: 1 - 2 days; Reason: Re-evaluation by your physician. Signatures: Malcolm Tsang RN RN jb4 Lloyd Hedrick MD MD Corrections: (The following items were deleted from the chart) 01:17 01:14 03/29/2019 01:14 Discharged to Home. Impression: Encounter for screening, jb4 unspecified. Condition is Stable. Forms are Medication Reconciliation Form, Thank You Letter, Antibiotic Education, Prescription Opioid Use. Follow up: Private Physician; When: 1 - 2 days; Reason: Re-evaluation by your physician. gs
== END 2019-03-29 01:17 | disposition home or self-care (01) ==
LOC: ER 00:21
DX: Z13.9 Encounter for screening, unspecified (principal); F32.9 Major depressive disorder, single episode, unspecified; F41.9 Anxiety disorder, unspecified; F17.210 Nicotine dependence, cigarettes, uncomplicated; Z88.0 Allergy status to penicillin; Z88.5 Allergy status to narcotic agent
CPT/HCPCS: 99282

== ENCOUNTER 2019-05-02 04:04 | Emergency (ER) | payer OTHER ==
--- OUTSIDE RECORDS SUMMARY | 2019-05-02 04:07 | XMS REPORT | Summary of Care ---
:1990 Author Organization [facility] Address [address] [place] [id number] Care Team Providers Name Role Phone Lizett Gutierrez MD Primary Care Provider Reason for Visit Reason Comments Tooth Pain Medication Problem Auth/Cert Status Reason Specialty Diagnoses / Referred By Referred To Procedures Contact Contact Emergency Medicine Diagnoses tooth pain [facility] [address] [place] [address] [place] [address] Encounter Details Date Type Department Care Team Description 03/29/2019 Emergency [facility] Evelyn Bird S, Toothache (Primary Dx) Department [address] [place] [address] [address] [place] [address] [id number] [place] [address] [phone] Allergies Active Allergy Reactions Severity Noted Date Comments Codeine Itching 12/15/2018 Penicillins Nausea and/or Vomiting 03/29/2019 documented as of this encounter (statuses as of 03/29/2019) Medications Medication Sig Dispensed Refills Start Date End Date Status MELOXICAM ORAL Take by mouth. 0 Active CLONAZEPAM ORAL Take by mouth. 0 Active trazodone HCl Take by mouth. 0 Active (TRAZODONE ORAL) HYDROXYZINE HCL ORAL Take by mouth. 0 Active proMETHazine 25 mg Take 0.5 tablets 8 tablet 0 01/26/2019 Active tabletIndications: by mouth every 6 Fever, unspecified (six) hours as fever cause, Viral needed for Nausea syndrome and Vomiting (N/V). ibuprofen 600 mg Take 1 tablet by 15 tablet 0 01/26/2019 Active tabletIndications: mouth every 6 Fever, unspecified (six) hours as fever cause, Viral needed for Temp > syndrome 38.5 C. clindamycin 300 mg Take 1 capsule by 21 capsule 0 03/29/2019 Active capsuleIndications: mouth 3 (three) Toothache times daily. naproxen sodium 550 mg Take 1 tablet by 14 tablet 0 03/29/2019 Active tabletIndications: mouth 2 (two) Toothache times daily with meals. documented as of this encounter (statuses as of 03/29/2019) Active Problems No known active problemsdocumented as of this encounter (statuses as of 2018) Social History Tobacco Use Types Packs/Day Years Used Date Current Every Day Smoker Sex Assigned at Date Recorded Not on file Job Start Date Occupation Industry Not on file Not on file Not on file Travel History Travel Start Travel End No recent travel history available. documented as of this encounter Last Filed Vital Signs Vital Sign Reading Time Taken Comments Blood Pressure 138/87 03/29/2019 1:39 AM CDT Pulse 72 03/29/2019 1:39 AM CDT Temperature 37 C (98.6 F) 03/29/2019 1:39 AM CDT Respiratory Rate 16 03/29/2019 1:39 AM CDT Oxygen Saturation 97% 03/29/2019 1:39 AM CDT Inhaled Oxygen Concentration - - Weight 129.7 kg (285 lb 14.4 oz) 03/29/2019 1:39 AM CDT Height 167.6 cm (5' 6") 03/29/2019 1:39 AM CDT Body Mass Index 46.15 03/29/2019 1:39 AM CDT documented in this encounter Discharge Instructions Evelyn Chirinos MD - 03/29/2019 DIAGNOSIS Diagnoses that have been ruled out: None Diagnoses that are still under consideration: None Final diagnoses: Toothache NO LIFE-THREATENING FINDINGS ON TODAY'S EXAM. PROCEDURES IN THE ER TODAY: No orders of the defined types were placed in this encounter. MEDICATIONS ADMINISTERED IN THE ER TODAY AND DISCHARGE MEDICATIONS: Orders Placed This Encounter Medications clindamycin (CLEOCIN HCL) capsule 300 mg HYDROcodone-acetaminophen (NORCO) 10-325 mg tablet 1 tablet clindamycin 300 mg capsule naproxen sodium 550 mg tablet FOLLOW-UP RECOMMENDATIONS: RECOMMEND FOLLOW-UP WITH DENTIST OF CHOICE AL[place] documented in this encounter Plan of Treatment Health Maintenance Due Date Last Done Comments PNEUMOCOCCAL 0-64 YEARS COMBINED SERIES (1 of 1 - 1997 PPSV23) VARICELLA VACCINES (1 of 2 - 13+ 2-dose series) 2004 DTaP,Tdap,and Td Vaccines (1 - Tdap) 2010 PAP SMEAR 2012 INFLUENZA VACCINE 04/19/2019 documented as of this encounter Procedures Procedure Name Priority Date/Time Associated Diagnosis Comments CONSENT/REFUSAL FOR Routine 03/29/2019 1:31 AM CDT DIAGNOSIS AND TREATMENT documented in this encounter Results Not on filedocumented in this encounter Visit Diagnoses Diagnosis Toothache - Primary Unspecified disorder of the teeth and supporting structures documented in this encounter Administered Medications Medication Order MAR Action Action Date Dose Rate Site clindamycin (CLEOCIN HCL) capsule Given 03/29/2019 2:13 AM CDT 300 mg 300 mg 300 mg, Oral, ONCE NOW, 1 dose, 03/29/19 at 0315, ALIA, Reason for Anti-Infective: Documented Infection, Documented Infection Site: HEENT, Duration of Therapy: Other (see Comments), 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
--- OUTSIDE RECORDS SUMMARY | 2019-05-02 04:07 | XMS REPORT | Summary of Care ---
:1990 Author Organization [facility] Address [address] [place] [address] Care Team Providers Name Role Phone Gwendolyn Vincent Primary Care Provider Reason for Referral MRI/CAT Scan (STAT) Status Reason Specialty Diagnoses / Referred By Referred To Procedures Contact Contact New Request Diagnostic Diagnoses Generalized abdominal pain Radha, K Radiology Procedures CT ABDOMEN PELVIS W CONTRAST Nata, PAC [address] [address] MRI/CAT Scan (STAT) Status Reason Specialty Diagnoses / Referred By Referred To Procedures Contact Contact New Request Diagnostic Diagnoses Generalized abdominal pain Radha, K Radiology Procedures CT ABDOMEN PELVIS W CONTRAST Nata, PAC [address] [address] Radiology Services (ALIA) Status Reason Specialty Diagnoses / Referred By Referred To Procedures Contact Contact New Request Diagnostic Diagnoses Cough Radha, K Radiology Procedures XR CHEST 2 VW Nata, PAC [address] [address] Radiology Services (ALIA) Status Reason Specialty Diagnoses / Referred By Referred To Procedures Contact Contact New Request Diagnostic Diagnoses Cough Radha, K Radiology Procedures XR CHEST 2 VW Nata, PAC [address] [address] Reason for Visit Reason Comments Body Aches Auth/Cert Status Reason Specialty Diagnoses / Referred By Referred To Procedures Contact Contact Emergency Medicine [facility] Emergency Dept [address] [facility] [place] [address] Encounter Details Date Type Department Care Team Description 2019 - Emergency ADC-Emergency Ani Wooten Viral syndrome (Primary Dx); 04/23/2019 Department ROSIE Peace Body aches; [address] [place] [address] Cough; [place] [address] [address]IO 5200 Generalized abdominal pain [phone] [place] [address] Allergies Active Allergy Reactions Severity Noted Date Comments Codeine Itching 12/15/2018 Penicillins Nausea and/or Vomiting 03/29/2019 documented as of this encounter (statuses as of 04/23/2019) Medications Medication Sig Dispensed Refills Start Date End Date Status MELOXICAM ORAL Take by 0 Active mouth. CLONAZEPAM ORAL Take by 0 Active mouth. trazodone HCl Take by 0 Active (TRAZODONE ORAL) mouth. HYDROXYZINE HCL ORAL Take by 0 Active mouth. proMETHazine 25 mg Take 0.5 8 tablet 0 01/26/2019 Active tabletIndications: tablets by Fever, unspecified mouth every 6 fever cause, Viral (six) hours as syndrome needed for Nausea and Vomiting (N/V). clindamycin 300 mg Take 1 capsule 21 capsule 0 03/29/2019 Active capsuleIndications: by mouth 3 Toothache (three) times daily. naproxen sodium 550 Take 1 tablet 14 tablet 0 03/29/2019 Active mg by mouth 2 tabletIndications: (two) times Toothache daily with meals. ondansetron (ZOFRAN Take 1 tablet 10 tablet 0 2019 Active ODT) 4 mg by mouth every disintegrating 8 (eight) tabletIndications: hours as Viral syndrome needed for Nausea and Vomiting (N/V). ibuprofen 600 mg Take 1 tablet 30 tablet 0 2019 Active tabletIndications: by mouth every Viral syndrome 6 (six) hours as needed for Pain (scale 4-6). ibuprofen 600 mg Take 1 tablet 15 tablet 0 01/26/2019 09/04/201 Discontinued tabletIndications: by mouth every 9 Fever, unspecified 6 (six) hours fever cause, Viral as needed for syndrome Temp > 38.5 C. documented as of this encounter (statuses as of 04/23/2019) Active Problems No known active problemsdocumented as [...] Sign Reading Time Taken Comments Blood Pressure 111/53 04/23/2019 1:00 AM CDT Pulse 97 04/23/2019 1:19 AM CDT Temperature 37.4 C (99.3 F) 04/23/2019 1:19 AM CDT Respiratory Rate 18 04/23/2019 1:19 AM CDT Oxygen Saturation 97% 04/23/2019 1:19 AM CDT Inhaled Oxygen Concentration - - Weight 127 kg (280 lb) 2019 9:12 PM CDT Height - - Body Mass Index 45.19 03/29/2019 1:39 AM CDT documented in this encounter Discharge Instructions AttachmentsThe following attachments cannot be sent through Care Everywhere.Viral Syndrome (Adult) (Danish)documented in this encounter Plan of Treatment Name Type Priority Associated Diagnoses Date/Time THROAT CULTURE LAB STAT Body aches 2019 9:49 PM CDT Name Type Priority Associated Diagnoses Order Schedule THROAT CULTURE LAB Routine Body aches ONCE for 1 Occurrences starting 2019 until 2019 Health Maintenance Due Date Last Done Comments PNEUMOCOCCAL 0-64 YEARS COMBINED SERIES (1 of 1 - 1997 PPSV23) VARICELLA VACCINES (1 of 2 - 13+ 2-dose series) 2004 DTaP,Tdap,and Td Vaccines (1 - Tdap) 2010 PAP SMEAR 2012 INFLUENZA VACCINE (#1) 2019 documented as of this encounter Procedures Procedure Name Priority Date/Time Associated Diagnosis Comments CT ABDOMEN PELVIS W STAT 2019 11:13 Generalized Results for this CONTRAST PM CDT abdominal pain procedure are in the results section. XR CHEST 2 VW ALIA 2019 11:12 Cough Results for this PM CDT procedure are in the results section. EBV-MONONUCLEOSIS STAT 2019 10:30 Body aches Results for this SCREEN PM CDT procedure are in the results section. CBC WITH DIFFERENTIAL STAT 2019 9:58 Body aches Results for this PM CDT procedure are in the results section. CBC WITH DIFF Routine 2019 9:58 Body aches Results for this PM CDT procedure are in the results section. COMP. METABOLIC PANEL STAT 2019 9:58 Body aches Results for this (26508) PM CDT procedure are in the results section. MAGNESIUM STAT 2019 9:58 Body aches Results for this PM CDT procedure are in the results section. LIPASE STAT 2019 9:58 Body aches Results for this PM CDT procedure are in the results section. ADC,CLC OR LCC ONLY - STAT 2019 9:49 Body aches Results for this INFLUENZA A & B PM CDT procedure are in DIRECT ANTIGEN the results section. RAPID STREP SCREEN STAT 2019 9:49 Body aches Results for this FOR GROUP A PM CDT procedure are in the results section. URINALYSIS STAT 2019 9:49 Body aches Results for this PM CDT procedure are in the results section. POCT TEST ALIA 2019 9:48 Body aches Results for this PM CDT procedure are in the results section. NOTICE OF PRIVACY Routine 2019 9:20 PRACTICES PM CDT CONSENT/REFUSAL FOR Routine 2019 9:00 DIAGNOSIS AND PM CDT TREATMENT documented in this encounter Results CT ABDOMEN PELVIS W CONTRAST (2019 11:13 PM CDT) Specimen Impressions Performed At PACS/VR/DOSE No acute findings in the abdomen or pelvis. Mild splenomegaly. Subcentimeter left renal cyst. Jefferson Nielson MD., have reviewed this study and agree with the above report. Narrative Performed At EXAM: CT ABDOMEN AND PELVIS WITH CONTRAST PACS/VR/DOSE HISTORY: 29-year-old female with questionable autoimmune disease presenting with diffuse bodyaches, arthralgia, fever, dizziness nausea, vomiting, sore throat, cough COMPARISON: None. DOSE: 773 mGy cm total exam DLP TECHNIQUE AND FINDINGS: Contiguous axial imaging from the level of the lung bases through the pubic symphysis was performed after the uncomplicated administration of 120 cc of intravenous Omnipaque contrast. Coronal and sagittal reconstructions were obtained.Auto mA and/or iterative reconstruction were used to reduce radiation dose. FINDINGS: LOWER THORAX: The lungs bases are clear. No cardiomegaly. LIVER: The liver is normal in size, contour and attenuation. No focal hepatic lesions. GALLBLADDER AND BILIARY TREE: No biliary ductal dilation.No gallbladder wall thickening. SPLEEN: 14.1 cm splenomegaly. PANCREAS: No ductal dilation or masses. ADRENAL GLANDS: No adrenal nodules. KIDNEYS: A well-circumscribed cortical medullary hypodensity in the left lower pole measures 8 mm (2:69). No hydronephrosis, stones, or masses. PERITONEUM AND RETROPERITONEUM: No free air or fluid. LYMPH NODES: No lymphadenopathy. GI TRACT: No dilation or wall thickening. Normal appendix. PELVIS/BLADDER: The bladder is nondistended. The uterus and bilateral ovaries are unremarkable. VESSELS: Unremarkable. BONES AND SOFT TISSUES: No suspicious lytic or sclerotic bony lesions. Procedure Note [facility], Radiant Results Inft User - 2019 11:45 PM CDT EXAM: CT ABDOMEN AND PELVIS WITH CONTRAST HISTORY: 29-year-old female with questionable autoimmune disease presenting with diffuse bodyaches, arthralgia, fever, dizziness nausea, vomiting, sore throat, cough COMPARISON: None. DOSE: 773 mGy cm total exam DLP TECHNIQUE AND FINDINGS: Contiguous axial imaging from the level of the lung bases through the pubic symphysis was performed after the uncomplicated administration of 120 cc of intravenous Omnipaque contrast. Coronal and sagittal reconstructions were obtained. Auto mA and/or iterative reconstruction were used to reduce radiation dose. FINDINGS: LOWER THORAX: The lungs bases are clear. No cardiomegaly. LIVER: The liver is normal in size, contour and attenuation. No focal hepatic lesions. GALLBLADDER AND BILIARY TREE: No biliary ductal dilation. No gallbladder wall thickening. SPLEEN: 14.1 cm splenomegaly. PANCREAS: No ductal dilation or masses. ADRENAL GLANDS: No adrenal nodules. KIDNEYS: A well-circumscribed cortical medullary hypodensity in the left lower pole measures 8 mm (2:69). No hydronephrosis, stones, or masses. PERITONEUM AND RETROPERITONEUM: No free air or fluid. LYMPH NODES: No lymphadenopathy. GI TRACT: No dilation or wall thickening. Normal appendix. PELVIS/BLADDER: The bladder is nondistended. The uterus and bilateral ovaries are unremarkable. VESSELS: Unremarkable. BONES AND SOFT TISSUES: No suspicious lytic or sclerotic bony lesions. IMPRESSION No acute findings in the abdomen or pelvis. Mild splenomegaly. Subcentimeter left renal cyst. Gwen Nielson MD., have reviewed this study and agree with the above report. Performing Organization Address [facility] Phone Number [facility] XR CHEST 2 VW (2019 11:12 PM CDT) Specimen Impressions Performed At [facility]//[facility] No acute cardiopulmonary process is identified. Jefferson Nielson MD., have reviewed this study and agree with the above report. Narrative Performed At [facility]/[employer] EXAM: XR CHEST 2 VW HISTORY: cough, body aches, elevated WBC COMPARISON: Same day CT abdomen and pelvis and radiograph on 12/28/2018 FINDINGS: The lungs are clear. No pleural effusion or pneumothorax. The heart size is normal. No acute osseous abnormality is identified. Procedure Note [facility], Radiant Results Inft User - 2019 11:38 PM CDT EXAM: XR CHEST 2 VW HISTORY: cough, body aches, elevated WBC COMPARISON: Same day CT abdomen and pelvis and radiograph on 12/28/2018 FINDINGS: The lungs are clear. No pleural effusion or pneumothorax. The heart size is normal. No acute osseous abnormality is identified. IMPRESSION No acute cardiopulmonary process is identified. Gwen Nielson MD., have reviewed this study and agree with the above report. Performing Organization Address [facility] Phone Number [facility]//[facility] EBV-MONONUCLEOSIS SCREEN (2019 10:30 PM CDT) EBV Mononucleosis Screen Negative Negative [facility] Specimen Blood - VENOUS Performing Organization Address [facility] Phone Number [facility] CLIA: [id number], [address] [place] [address] CBC WITH DIFFERENTIAL (2019 9:58 PM CDT) WBC 15.29 (H) 4.30 - 11.10 [facility] 10*3/L [facility] RBC 4.99 3.93 - 5.25 [facility] 10*6/L [facility] HGB 14.2 11.6 - 15.0 [facility] g/dL [facility] HCT 41.3 35.7 - 45.2 % [facility] MCV 82.8 80.6 - 95.5 fL [facility] MCH 28.5 25.9 - 32.8 pg [facility] MCHC 34.4 31.6 - 35.1 [facility] g/dL [facility] RDW-SD 39.3 39.0 - 49.9 fL [facility] RDW-CV 13.0 12.0 - 15.5 % [facility] PLT 290 166 - 358 [facility] 10*3/L [facility] MPV 10.5 9.5 - 12.9 fL [facility] NRBC/100 WBC 0.0 0.0 - 10.0 /100 [facility] WBCs [facility] NRBC x10^3 <0.01 10*3/L [facility] GRAN MAT (NEUT) % 80.9 % [facility] IMM GRAN % 0.70 % [facility] LYMPH % 9.9 % [facility] MONO % 7.8 % [facility] EOS % 0.2 % [facility] BASO % 0.5 % [facility] GRAN MAT x10^3(ANC) 12.38 (H) 1.88 - 7.09 [facility] 10*3/uL [facility] IMM GRAN x10^3 0.10 (H) 0.00 - 0.06 [facility] 10*3/uL [facility] LYMPH x10^3 1.52 1.32 - 3.29 [facility] 10*3/uL [facility] MONO x10^3 1.19 (H) 0.33 - 0.92 [facility] 10*3/uL [facility] EOS x10^3 0.03 0.03 - 0.39 [facility] 10*3/uL [facility] BASO x10^3 0.07 0.01 - 0.07 [facility] 10*3/uL [facility] Specimen Blood - VENOUS Performing Organization Address City/State/Zipcode Phone Number [facility] CLIA: [id number], [address] [place] [address] LIPASE (2019 9:58 PM CDT) LIPASE 69 0 - 220 U/L [facility] Specimen Blood - VENOUS Performing Organization Address City/[facility]/Zipcode Phone Number [facility] CLIA: [id number], [address] [place] [address] MAGNESIUM (2019 9:58 PM CDT) MAGNESIUM 1.7 1.7 - 2.4 mg/dL [facility] Specimen Blood - VENOUS Performing Organization Address City/State/Zipcode Phone Number [facility] CLIA: [id number], [address] [place] [address] COMP. METABOLIC PANEL (65249) (2019 9:58 PM CDT) NA 138 135 - 145 mmol/L [facility] K 4.3 3.5 - 5.0 mmol/L [facility] CL 101 98 - 108 mmol/L [facility] CO2 TOTAL 25 23 - 31 mmol/L [facility] AGAP 12 2 - 16 [facility] BUN 13 7 - 23 mg/dL [facility] GLUCOSE 86 70 - 110 mg/dL [facility] CREATININE 0.80 0.50 - 1.04 [facility] mg/dL [facility] TOTAL BILI 0.3 0.1 - 1.1 mg/dL [facility] CALCIUM 9.3 8.6 - 10.6 mg/dL [facility] T PROTEIN 7.7 6.3 - 8.2 g/dL [facility] ALBUMIN 4.5 3.5 - 5.0 g/dL [facility] ALK PHOS 96 34 - 122 U/L [facility] ALT(SGPT) 28 9 - 51 U/L [facility] AST(SGOT) 27 13 - 40 U/L [facility] eGFR Calculation 85.4 mL/min/1.73m2 [facility] (Non-) [facility] eGFR Calculation 103.5 mL/min/1.73m2 [facility] () [facility] Specimen Blood - VENOUS Narrative Performed At Association of Glomerular Filtration Rate (GFR) [facility] and Staging of Kidney Disease* + + +- + | GFR (mL/min/1.73 m2)| With Kidney Damage|Without Kidney Damage + + +- + |>90| Stage one| Normal + + +- + |60-89|S tage two| Decreased GFR + + +- + |30-59|S tage three| Stage three + + +- + |15-29|S tage four | Stage four + + +- + |<15 (or dialysis)|Stage five | Stage five + + +- + *Each stage assumes the associated GFR level has been in effect for at least three months.Stages 1 to 5, with or without kidney disease, indicate chronic kidney disease. Notes: Determination of stages one and two (with eGFR >59mL/min/1.73 m2) requires estimation of kidney damage for at least three months as defined by structural or functional abnormalities of the kidney, manifested by either: Pathological abnormalities or Markers of kidney damage (including abnormalities in the composition of the blood or urine or abnormalities in imaging tests). Performing Organization Address City/[facility] Phone Number [facility] CLIA: [id number], [address] [place], [place] [address] [address] ADC,CLC OR LCC ONLY - INFLUENZA A & B DIRECT ANTIGEN (2019 9:49 PM CDT) Influenza A NEGATIVE Negative [facility] Influenza B NEGATIVE Negative [facility] Specimen Swab - NARE, LEFT SIDE Performing Organization Address [facility] Phone Number [facility] CLIA: [id number], [address] [place] [address] URINALYSIS (2019 9:49 PM CDT) APPEARANCE Clear Clear [facility] COLOR Yellow Yellow [facility] PH 8.5 (A) 4.8 - 8.0 [facility] SP GRAVITY 1.010 1.003 - 1.030 [facility] GLU U QUAL Negative Negative [facility] BLOOD Negative Negative [facility] KETONES Negative Negative [facility] PROTEIN Negative Negative [facility] UROBILIN 0.2 mg/dL 0-1.0 mg/dL [facility] BILIRUBIN Negative Negative [facility] NITRITE Negative Negative [facility] LEUK PEPPER Negative Negative [facility] RBC/HPF 0 0 - 3 HPF [facility] WBC/HPF 1 0 - 5 HPF [facility] BACTERIA Few (A) Negative [facility] SQ EPITH 10 HPF [facility] Specimen Urine - URINE, CLEAN CATCH Performing Organization Address City/[facility]/Zipcode Phone Number [facility] CLIA: [id number], [address] [place], [place] [address] LABORAT[address] RAPID STREP SCREEN FOR GROUP A (2019 9:49 PM CDT) Streptococcus pyogenes Negative Negative [facility] (group A) antigen [facility] Specimen Swab - THROAT Performing Organization Address [facility] Phone Number [facility] CLIA: [id number], [address] [place] [address] POCT TEST (2019 9:48 PM CDT) POCT PREG negative On board controls acceptable yes with C Line POCT PREG LOT # [id number] POCT PREG TEST DATE 08/18/2020 Specimen Urine - URINE, CLEAN CATCH documented in this encounter Visit Diagnoses Diagnosis Viral syndrome - Primary Unspecified viral infection, in conditions classified elsewhere and of unspecified site Body aches Generalized pain Cough Generalized abdominal pain Abdominal pain, generalized documented in this encounter Administered Medications Medication Order MAR Action Action Date Dose Rate Site acetaminophen (TYLENOL) tablet Given 2019 11:58 PM CDT 975 mg 975 mg 975 mg, Oral, ONCE, 1 dose, An 04/23/19 at 0100, ALIA diphenhydrAMINE (BENADRYL) injection 25 mg Given 2019 11:55 PM CDT 25 mg 25 mg, Slow IV Push, ONCE, 1 dose, An 04/23/19 at 0045, STAT iohexol (OMNIPAQUE 350 BULK-150 mL) Given 2019 11:15 PM CDT 120 mL injection 120 mL 120 mL, Intravenous, ONCE, 1 dose, 04/22/19 at 2315, Routine ketorolac (TORADOL) injection 30 mg Given 2019 11:54 PM CDT 30 mg 30 mg, Slow IV Push, ONCE, 1 dose, An 04/23/19 at 0045, ALIA, geosciences faculty member approving Restricted medication: Ani WOOTEN metoclopramide HCl (REGLAN) injection 10 mg Given 2019 11:56 PM CDT 10 mg 10 mg, Slow IV Push, ONCE, 1 dose, An 04/23/19 at 0045, ALIA NaCl 0.9% (NS) bolus infusion New Bag 2019 9:58 PM CDT 1,000 mL 999 mL/hr 1,000 mL at 999 mL/hr, 1,000 mL, IV Infusion, ONCE, 1 dose, 04/22/19 at 2245, STAT NaCl 0.9% (NS) bolus infusion New Bag 2019 11:49 PM CDT 1,000 mL 999 mL/hr 1,000 mL at 999 mL/hr, 1,000 mL, IV Infusion, ONCE, 1 dose, An 04/23/19 at 0045, STAT documented in this encounter Insurance Payer Benefit Plan / Subscriber ID Effective Phone Address Type Group Dates [employer] xxxxxxxxx 2018-[facility] [address] [place] [id number] [place] [address] documented as of this encounter"
--- OUTSIDE RECORDS SUMMARY | 2019-05-02 04:07 | XMS REPORT ---
:1990 Author [facility] Address [address] [place] [address] Dr. O[address]co [address] [place] [address] Care Team Providers Name Role Phone Unavailable Unavailable Unavailable Problems This patient has no known problems. Allergies, Adverse Reactions, Alerts This patient has no known allergies or adverse reactions. Medications This patient has no known medications.
--- NOTE | 2019-05-02 04:56 | ER ---
Nurse's Notes [facility] Name: Wendi Oglesby Age: 29 yrs Sex: Female : 1990 Arrival Date: 05/02/2019 Time: 04:09 Bed 14 Private MD: Diagnosis: Dental caries;Dental caries, unspecified Presentation: 05/02 04:10 Presenting complaint: Patient states: that she is having pain to left upper back tooth. fc Was seen at [facility] in [place] 2 weeks ago and given Clindamycin for 7 days. She states that she took it and is using Ibuprofen, Tylenol and Ora gel with no improvement. Pt is eating in room and drink cold drink. Transition of care: patient was not received from another setting of care. Onset of symptoms was March 2019. Risk Assessment: Do you want to hurt yourself or someone else? Patient reports no desire to harm self or others. Initial Sepsis Screen: Does the patient meet any 2 criteria? No. Patient's initial sepsis screen is negative. Does the patient have a suspected source of infection? No. Patient's initial sepsis screen is negative. Care prior to arrival: Medication(s) given: Tylenol last at 0200 and Ibuprofen last at 0000. 04:10 Method Of Arrival: Ambulatory 04:10 Acuity: SAURAV 4 fc VETERINARIAN POULTRY: 04:10 [facility] 04/29/2019 Historical: - Allergies: 04:33 Codeine; 04:33 PENICILLINS; fc - Home Meds: 04:33 hydroxyzine HCl 25 mg Oral tab 1 tab nightly [Active]; trazodone 50 mg Oral tab 1 tab fc nightly [Active]; clonazepam 1 mg Oral tab 1 tab nightly [Active]; - PMHx: 04:33 Anxiety; Depression; OSTEOARTHRITIS; LUMMI; Auto Immune; personality disorder; OCD; fc Bipolar disorder; - PSHx: 04:33 None; fc - Immunization history:: Last tetanus immunization: up to date. - Social history:: Smoking status: Patient uses tobacco products, smokes one-half pack cigarettes per day, Patient uses alcohol, occasionally. Patient/guardian denies using street drugs. - Ebola Screening: : Patient negative for fever greater than or equal to 101.5 degrees Fahrenheit, and additional compatible Ebola Virus Disease symptoms Patient denies exposure to infectious person Patient denies travel to an Ebola-affected area in the 21 days before illness onset. - Family history:: not pertinent. Screenin:10 Abuse screen: Denies threats or abuse. Nutritional screening: No deficits noted. Tuberculosis screening: No symptoms or risk factors identified. Fall Risk None identified. Assessment: 04:30 General: Appears in no apparent distress. uncomfortable, Behavior is calm, cooperative, jb4 appropriate for age. Pain: Complains of pain in mouth Pain does not radiate. Pain currently is 9 out of 10 on a pain scale. Quality of pain is described as throbbing. Neuro: Level of Consciousness is awake, alert, obeys commands, Oriented to person, place, time, situation. Cardiovascular: Patient's skin is warm and dry. Respiratory: Airway is patent Respiratory effort is even, unlabored, Respiratory pattern is regular, symmetrical. GI: No deficits noted. No signs and/or symptoms were reported involving the gastrointestinal system. : No deficits noted. No signs and/or symptoms were reported regarding the genitourinary system. EENT: Poor dentition noted. Derm: Skin is intact, Skin is pink, warm \T\ dry. Musculoskeletal: Amputation of Range of motion:. 05:10 Reassessment: Patient appears in no apparent distress at this time. Patient and/or jb4 family updated on plan of care and expected duration. Pain level reassessed. Patient is alert, oriented x 3, equal unlabored respirations, skin warm/dry/pink. Vital Signs: 04:10 BP 120 / 73; Pulse 88; Resp 18; Temp 98.7(O); Pulse Ox 99% on R/A; Weight 127.01 kg (R); Height 5 ft. 7 in. (170.18 cm) (R); Pain 10/10; 05:10 BP 109 / 75; Pulse 95; Resp 16; Pulse Ox 99% on R/A; jb4 04:10 Body Mass Index 43.85 (127.01 kg, 170.18 cm) ED Course: 04:09 Patient arrived in ED. ag3 04:10 Arm band placed on Patient placed in an exam room, on a stretcher. 04:10 Patient has correct armband on for positive identification. Bed in low position. Call light in reach. Pulse ox on. NIBP on. 04:10 No provider procedures requiring assistance completed. 04:29 Triage completed. 04:46 Zaid Cooley MD is Attending Physician. [facility] 04:54 Sal Loza DDS is Referral Physician. [facility] 05:07 Malcolm Tsang, RN is Primary Nurse. jb4 05:10 Patient did not have IV access during this emergency room visit. jb4 Administered Medications: 05:08 Drug: Motrin 800 mg Route: PO; jb4 05:09 Follow up: Response: Medication administered at discharge. jb4 05:08 Drug: traMADol 100 mg Route: PO; jb4 05:09 Follow up: Response: Medication administered at discharge. jb4 05:08 Drug: Clindamycin 300 mg Route: PO; jb4 05:09 Follow up: Response: Medication administered at discharge. jb4 Outcome: 04:55 Discharge ordered by . [facility] 05:10 Discharged to home ambulatory. jb4 05:10 Condition: stable 05:10 Discharge instructions given to patient, family, Instructed on discharge instructions, follow up and referral plans. medication usage, Demonstrated understanding of instructions, follow-up care, medications, Prescriptions given X 3. 05:13 Patient left the ED. jb4 Signatures: Zaid Cooley MD MD cha Chretien, Felicia, RN RN Malcolm Tsang, RN RN jb Diane Hebert 3
--- NOTE | 2019-05-02 04:57 | EDPHYS ---
Physician Documentation [facility] Name: Wendi Oglesby Age: 29 yrs Sex: Female : 1990 Arrival Date: 05/02/2019 Time: 04:09 Bed 14 Private MD: GRICELDA Physician Zaid Cooley HPI: 05/02 04:48 This 29 yrs old Female presents to ER via Ambulatory with complaints of michael Toothache. 04:48 The patient presents with pain. The problem is located in the gums, upper left cuspid michael and upper left first bicuspid. Onset: The symptoms/episode began/occurred 1 week(s) ago. Duration: The symptoms are continuous, and are unchanged since they started. Modifying factors: The symptoms are alleviated by nothing, the symptoms are aggravated by nothing. Severity of symptoms: At their worst the symptoms were mild, in the emergency department the symptoms are unchanged. The patient has not experienced similar symptoms in the past. 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 - Social history:: Smoking status: Patient uses tobacco products, smokes one-half pack cigarettes per day, Patient uses alcohol, occasionally. Patient/guardian denies using street drugs. - Ebola Screening: : Patient negative for fever greater than or equal to 101.5 degrees Fahrenheit, and additional compatible Ebola Virus Disease symptoms Patient denies exposure to infectious person Patient denies travel to an Ebola-affected area in the 21 days before illness onset. - Family history:: not pertinent. ROS: 04:48 Constitutional: Negative for fever, chills, and weight loss, Eyes: Negative for injury, michael pain, redness, and discharge, ENT: Negative for injury, pain, and discharge, Neck: Negative for injury, pain, and swelling, Cardiovascular: Negative for chest pain, palpitations, and edema, Respiratory: Negative for shortness of breath, cough, wheezing, and pleuritic chest pain, Abdomen/GI: Negative for abdominal pain, nausea, vomiting, diarrhea, and constipation, Back: Negative for injury and pain, : Negative for injury, bleeding, discharge, and swelling, MS/Extremity: Negative for injury and deformity, Skin: Negative for injury, rash, and discoloration, Neuro: Negative for headache, weakness, numbness, tingling, and seizure, Psych: Negative for depression, anxiety, suicide ideation, homicidal ideation, and hallucinations, Allergy/Immunology: Negative for hives, rash, and allergies, Endocrine: Negative for neck swelling, polydipsia, polyuria, polyphagia, and marked weight changes, Hematologic/Lymphatic: Negative for swollen nodes, abnormal bleeding, and unusual bruising. Exam: 04:48 Constitutional: This is a well developed, well nourished patient who is awake, alert, michael and in no acute distress. Eyes: Pupils equal round and reactive to light, extra-ocular motions intact. Lids and lashes normal. Conjunctiva and sclera are non-icteric and not injected. Cornea within normal limits. Periorbital areas with no swelling, redness, or edema. ENT: Nares patent. No nasal discharge, no septal abnormalities noted. Tympanic membranes are normal and external auditory canals are clear. Oropharynx with no redness, swelling, or masses, exudates, or evidence of obstruction, uvula midline. Mucous membranes moist. Neck: Trachea midline, no thyromegaly or masses palpated, and no cervical lymphadenopathy. Supple, full range of motion without nuchal rigidity, or vertebral point tenderness. No Meningismus. Chest/axilla: Normal chest wall appearance and motion. Nontender with no deformity. No lesions are appreciated. Cardiovascular: Regular rate and rhythm with a normal S1 and S2. No gallops, murmurs, or rubs. Normal PMI, no JVD. No pulse deficits. Respiratory: Lungs have equal breath sounds bilaterally, clear to auscultation and percussion. No rales, rhonchi or wheezes noted. No increased work of breathing, no retractions or nasal flaring. Abdomen/GI: Soft, non-tender, with normal bowel sounds. No distension or tympany. No guarding or rebound. No evidence of tenderness throughout. Back: No spinal tenderness. No costovertebral tenderness. Full range of motion. Skin: Warm, dry with normal turgor. Normal color with no rashes, no lesions, and no evidence of cellulitis. MS/ Extremity: Pulses equal, no cyanosis. Neurovascular intact. Full, normal range of motion. Neuro: Awake and alert, GCS 15, oriented to person, place, time, and situation. Cranial nerves II-XII grossly intact. Motor strength 5/5 in all extremities. Sensory grossly intact. Cerebellar exam normal. Normal gait. Psych: Awake, alert, with orientation to person, place and time. Behavior, mood, and affect are within normal limits. 04:48 Head/face: Noted is tenderness, that is mild, of the gums, upper left lateral incisor and upper left cuspid. Vital Signs: 04:10 BP 120 / 73; Pulse 88; Resp 18; Temp 98.7(O); Pulse Ox 99% on R/A; Weight 127.01 kg fc (R); Height 5 ft. 7 in. (170.18 cm) (R); Pain 10/10; 05:10 BP 109 / 75; Pulse 95; Resp 16; Pulse Ox 99% on R/A; jb4 04:10 Body Mass Index 43.85 (127.01 kg, 170.18 cm) MDM: 04:47 Patient medically screened. [facility] 04:51 Data reviewed: vital signs, nurses notes. michael Administered Medications: 05:08 Drug: Motrin 800 mg Route: PO; [facility] 05:09 Follow up: Response: Medication administered at discharge. [facility] 05:08 Drug: traMADol 100 mg Route: PO; jb4 05:09 Follow up: Response: Medication administered at discharge. 4 05:08 Drug: Clindamycin 300 mg Route: PO; 4 05:09 Follow up: Response: Medication administered at discharge. [facility] Disposition: 05/02/19 04:55 Discharged to Home. Impression: Dental caries, Dental caries, unspecified. - Condition is Stable. - Discharge Instructions: Dental Caries, Adult, Dental Pain, Dental Pain, [id number], Diet and Dental Disease. - Prescriptions for Clindamycin HCl 300 mg Oral Capsule - take 1 capsule by ORAL route every 6 hours for 10 days; 40 capsule. Tramadol 50 mg Oral Tablet - take 1 tablet by ORAL route every 8 hours as needed; 20 tablet. Ibuprofen 600 mg Oral Tablet - take 1 tablet by ORAL route every 8 hours As needed take with food; 21 tablet. - Medication Reconciliation Form, Thank You Letter, Antibiotic Education, Prescription Opioid Use form. - Follow up: Private Physician; When: 2 - 3 days; Reason: Recheck today's complaints, Continuance of care, Re-evaluation by your physician. Follow up: Sal Loza DDS; When: 2 - 3 days; Reason: Recheck today's complaints, Re-evaluation by your physician. - Problem is new. - Symptoms have improved. Signatures: Zaid Cooley MD MD cha Chretien, Felicia, RN RN Malcolm Tinsley RN RN jb4 Corrections: (The following items were deleted from the chart) 05:13 04:55 05/02/2019 04:55 Discharged to Home. Impression: Dental caries; Dental caries, jb4 unspecified. Condition is Stable. Forms are Medication Reconciliation Form, Thank You Letter, Antibiotic Education, Prescription Opioid Use. Follow up: Private Physician; When: 2 - 3 days; Reason: Recheck today's complaints, Continuance of care, Re-evaluation by your physician. Follow up: Sal Loza; When: 2 - 3 days; Reason: Recheck today's complaints, Re-evaluation by your physician. Problem is new. Symptoms have improved. michael
[2019-05-02] MEDS ORDERED: IBUPROFEN 400 MG TAB ONE (05:00)
[2019-05-02] MEDS ORDERED: CLINDAMYCIN HCL 150 MG CAP ONE (05:00)
[2019-05-02] MEDS ORDERED: TRAMADOL HCL 50 MG TAB ONE (05:00)
[2019-05-02 06:09] VITALS: TEMP 98.7; O2SAT 99
[2019-05-02 06:10] VITALS: BP 109/75
== END 2019-05-02 05:13 | disposition home or self-care (01) ==
LOC: ER 04:04
DX: K02.9 Dental caries, unspecified (principal); F17.210 Nicotine dependence, cigarettes, uncomplicated; F41.9 Anxiety disorder, unspecified; F32.9 Major depressive disorder, single episode, unspecified; F31.9 Bipolar disorder, unspecified; Z88.0 Allergy status to penicillin; Z88.5 Allergy status to narcotic agent
CPT/HCPCS: 99283

== ENCOUNTER 2024-12-15 10:31 | Emergency (ER) | payer OTHER ==
--- OUTSIDE RECORDS SUMMARY | 2024-12-15 10:39 | XMS REPORT | Continuity of Care Document ---
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 Influenza Virus Vaccine 2021-08-16 00:00:00 Completed [facility] Influenza Virus Vaccine 2021-08-16 00:00:00 Completed [facility] Influenza Virus Vaccine 2021-08-16 00:00:00 Completed [facility] Influenza Virus Vaccine 2021-08-16 00:00:00 Completed [facility] SARS-COV-2 COVID-19 MODERNA 12+ YRS VACCINE 2021-04-10 00:00:00 Completed [facility] SARS-COV-2 COVID-19 MODERNA 12+ YRS VACCINE 2021-04-10 00:00:00 Completed [facility] SARS-COV-2 COVID-19 MODERNA 12+ YRS VACCINE 2021-04-10 00:00:00 Completed [facility] SARS-COV-2 COVID-19 MODERNA 12+ YRS VACCINE 2021-04-10 00:00:00 Completed [facility] SARS-COV-2 COVID-19 MODERNA 12+ YRS VACCINE 2021-04-10 00:00:00 Completed [facility] SARS-COV-2 COVID-19 MODERNA 12+ YRS VACCINE 2021-04-10 00:00:00 Completed [facility] SARS-COV-2 COVID-19 MODERNA 12+ YRS VACCINE 2021-04-10 00:00:00 Completed [facility] SARS-COV-2 COVID-19 MODERNA 12+ YRS VACCINE 2021-04-10 00:00:00 Completed [facility] SARS-COV-2 COVID-19 MODERNA 12+ YRS VACCINE 2021-04-10 00:00:00 Completed [facility] SARS-COV-2 COVID-19 MODERNA 12+ YRS VACCINE 2021-04-10 00:00:00 Completed [facility] SARS-COV-2 COVID-19 MODERNA 12+ YRS VACCINE 2021-04-10 00:00:00 Completed [facility] SARS-COV-2 COVID-19 MODERNA 12+ YRS VACCINE 2021-04-10 00:00:00 Completed [facility] SARS-COV-2 COVID-19 MODERNA 12+ YRS VACCINE 2021-04-10 00:00:00 Completed SARS-COV-2 COVID-19 MODERNA 12+ YRS VACCINE 2021-04-10 00:00:00 Completed SARS-COV-2 COVID-19 MODERNA VACCINE 2021-04-10 00:00:00 Completed [facility] SARS-COV-2 COVID-19 MODERNA VACCINE 2021-04-10 00:00:00 Completed [facility] SARS-COV-2 COVID-19 MODERNA VACCINE 2021-04-10 00:00:00 Completed [facility] SARS-COV-2 COVID-19 MODERNA VACCINE 2021-04-10 00:00:00 Completed [facility] SARS-COV-2 COVID-19 MODERNA VACCINE 2021-04-10 00:00:00 Completed [facility] SARS-COV-2 COVID-19 MODERNA VACCINE 2021-04-10 00:00:00 Completed [facility] SARS-COV-2 COVID-19 MODERNA VACCINE 2021-04-10 00:00:00 Completed [facility] SARS-COV-2 COVID-19 MODERNA 12+ YRS VACCINE 2021-04-10 00:00:00 Completed [facility] SARS-COV-2 COVID-19 MODERNA 12+ YRS VACCINE 2021-04-10 00:00:00 Completed [facility] SARS-COV-2 COVID-19 MODERNA 12+ YRS VACCINE 2021-03-20 00:00:00 Completed [facility] SARS-COV-2 COVID-19 MODERNA 12+ YRS VACCINE 2021-03-20 00:00:00 Completed [facility] SARS-COV-2 COVID-19 MODERNA 12+ YRS VACCINE 2021-03-20 00:00:00 Completed [facility] SARS-COV-2 COVID-19 MODERNA 12+ YRS VACCINE 2021-03-20 00:00:00 Completed [facility] SARS-COV-2 COVID-19 MODERNA 12+ YRS VACCINE 2021-03-20 00:00:00 Completed [facility] SARS-COV-2 COVID-19 MODERNA 12+ YRS VACCINE 2021-03-20 00:00:00 Completed [facility] SARS-COV-2 COVID-19 MODERNA 12+ YRS VACCINE 2021-03-20 00:00:00 Completed [facility] SARS-COV-2 COVID-19 MODERNA 12+ YRS VACCINE 2021-03-20 00:00:00 Completed [facility] SARS-COV-2 COVID-19 MODERNA 12+ YRS VACCINE 2021-03-20 00:00:00 Completed [facility] SARS-COV-2 COVID-19 MODERNA 12+ YRS VACCINE 2021-03-20 00:00:00 Completed [facility] SARS-COV-2 COVID-19 MODERNA 12+ YRS VACCINE 2021-03-20 00:00:00 Completed [facility] SARS-COV-2 COVID-19 MODERNA 12+ YRS VACCINE 2021-03-20 00:00:00 Completed [facility] SARS-COV-2 COVID-19 MODERNA 12+ YRS VACCINE 2021-03-20 00:00:00 Completed SARS-COV-2 COVID-19 MODERNA 12+ YRS VACCINE 2021-03-20 00:00:00 Completed SARS-COV-2 COVID-19 MODERNA VACCINE 2021-03-20 00:00:00 Completed [facility] SARS-COV-2 COVID-19 MODERNA VACCINE 2021-03-20 00:00:00 Completed [facility] SARS-COV-2 COVID-19 MODERNA VACCINE 2021-03-20 00:00:00 Completed [facility] SARS-COV-2 COVID-19 MODERNA VACCINE 2021-03-20 00:00:00 Completed [facility] SARS-COV-2 COVID-19 MODERNA VACCINE 2021-03-20 00:00:00 Completed [facility] SARS-COV-2 COVID-19 MODERNA VACCINE 2021-03-20 00:00:00 Completed [facility] SARS-COV-2 COVID-19 MODERNA VACCINE 2021-03-20 00:00:00 Completed [facility] SARS-COV-2 COVID-19 MODERNA 12+ YRS VACCINE 2021-03-20 00:00:00 Completed [facility] SARS-COV-2 COVID-19 MODERNA 12+ YRS VACCINE 2021-03-20 00:00:00 Completed [facility] Influenza Virus Vaccine (3+ yrs) 2020-06-15 00:00:00 Completed [facility] TDAP 2020-06-15 00:00:00 Completed [facility] Influenza Virus Vaccine (3+ yrs) 2020-06-15 00:00:00 Completed [facility] TDAP 2020-06-15 00:00:00 Completed [facility] Influenza Virus Vaccine (3+ yrs) 2020-06-15 00:00:00 Completed [facility] TDAP 2020-06-15 00:00:00 Completed [facility] Influenza Virus Vaccine (3+ yrs) 2020-06-15 00:00:00 Completed [facility] TDAP 2020-06-15 00:00:00 Completed [facility] Influenza Virus Vaccine (3+ yrs) 2020-06-15 00:00:00 Completed [facility] TDAP 2020-06-15 00:00:00 Completed [facility] Influenza Virus Vaccine (3+ yrs) 2020-06-15 00:00:00 Completed [facility] TDAP 2020-06-15 00:00:00 Completed [facility] Influenza Virus Vaccine (3+ yrs) 2020-06-15 00:00:00 Completed [facility] TDAP 2020-06-15 00:00:00 Completed [facility] Influenza Virus Vaccine (3+ yrs) 2020-06-15 00:00:00 Completed [facility] TDAP 2020-06-15 00:00:00 Completed [facility] Influenza Virus Vaccine (3+ yrs) 2020-06-15 00:00:00 Completed [facility] TDAP 2020-06-15 00:00:00 Completed [facility] Influenza Virus Vaccine (3+ yrs) 2020-06-15 00:00:00 Completed [facility] TDAP 2020-06-15 00:00:00 Completed [facility] Influenza Virus Vaccine (3+ yrs) 2020-06-15 00:00:00 Completed [facility] TDAP 2020-06-15 00:00:00 Completed [facility] Influenza Virus Vaccine (3+ yrs) 2020-06-15 00:00:00 Completed [facility] TDAP 2020-06-15 00:00:00 Completed [facility] Influenza Virus Vaccine (3+ yrs) 2020-06-15 00:00:00 Completed TDAP 2020-06-15 00:00:00 Completed Influenza, split virus, trivalent, preservative (3+ Yrs) (Afluria) 2020-06-15 00:00:00 Completed TDAP 2020-06-15 00:00:00 Completed Influenza Virus Vaccine (3+ yrs) 2020-06-15 00:00:00 Completed [facility] TDAP 2020-06-15 00:00:00 Completed [facility] Influenza Virus Vaccine (3+ yrs) 2020-06-15 00:00:00 Completed [facility] TDAP 2020-06-15 00:00:00 Completed [facility] Influenza Virus Vaccine (3+ yrs) 2020-06-15 00:00:00 Completed [facility] TDAP 2020-06-15 00:00:00 Completed [facility] Influenza Virus Vaccine (3+ yrs) 2020-06-15 00:00:00 Completed [facility] TDAP 2020-06-15 00:00:00 Completed [facility] Influenza Virus Vaccine (3+ yrs) 2020-06-15 00:00:00 Completed [facility] TDAP 2020-06-15 00:00:00 Completed [facility] Influenza Virus Vaccine (3+ yrs) 2020-06-15 00:00:00 Completed [facility] TDAP 2020-06-15 00:00:00 Completed [facility] Influenza Virus Vaccine (3+ yrs) 2020-06-15 00:00:00 Completed [facility] TDAP 2020-06-15 00:00:00 Completed [facility] Influenza Virus Vaccine (3+ yrs) 2020-06-15 00:00:00 Completed [facility] TDAP 2020-06-15 00:00:00 Completed [facility] Influenza Virus Vaccine (3+ yrs) 2020-06-15 00:00:00 Completed [facility] TDAP 2020-06-15 00:00:00 Completed [facility] Rho (d) Immune Globulin 2020-03-12 00:00:00 Completed [facility] Rho (d) Immune Globulin 2020-03-12 00:00:00 Completed [facility] Rho (d) Immune Globulin 2020-03-12 00:00:00 Completed [facility] Rho (d) Immune Globulin 2020-03-12 00:00:00 Completed [facility] Rho (d) Immune Globulin 2020-03-12 00:00:00 Completed [facility] Rho (d) Immune Globulin 2020-03-12 00:00:00 Completed [facility] Rho (d) Immune Globulin 2020-03-12 00:00:00 Completed [facility] Rho (d) Immune Globulin 2020-03-12 00:00:00 Completed [facility] Rho (d) Immune Globulin 2020-03-12 00:00:00 Completed [facility] Rho (d) Immune Globulin 2020-03-12 00:00:00 Completed [facility] Rho (d) Immune Globulin 2020-03-12 00:00:00 Completed [facility] Rho (d) Immune Globulin 2020-03-12 00:00:00 Completed [facility] Rho (d) Immune Globulin 2020-03-12 00:00:00 Completed [facility] Rho (d) Immune Globulin 2020-03-12 00:00:00 Completed [facility] Rho (d) Immune Globulin 2020-03-12 00:00:00 Completed [facility] Rho (d) Immune Globulin 2020-03-12 00:00:00 Completed [facility] Rho (d) Immune Globulin 2020-03-12 00:00:00 Completed [facility] Rho (d) Immune Globulin 2020-03-12 00:00:00 Completed [facility] Rho (d) Immune Globulin 2020-03-12 00:00:00 Completed [facility] Rho (d) Immune Globulin 2020-03-12 00:00:00 Completed [facility] Rho (d) Immune Globulin 2020-03-12 00:00:00 Completed [facility] Rho (d) Immune Globulin 2020-03-12 00:00:00 Completed [facility] Rho (d) Immune Globulin 2020-03-12 00:00:00 Completed [facility] Rho (d) Immune Globulin 2020-01-15 00:00:00 Completed [facility] Rho (d) Immune Globulin 2020-01-15 00:00:00 Completed [facility] Rho (d) Immune Globulin 2020-01-15 00:00:00 Completed [facility] Rho (d) Immune Globulin 2020-01-15 00:00:00 Completed [facility] Rho (d) Immune Globulin 2020-01-15 00:00:00 Completed [facility] Rho (d) Immune Globulin 2020-01-15 00:00:00 Completed [facility] Rho (d) Immune Globulin 2020-01-15 00:00:00 Completed [facility] Rho (d) Immune Globulin 2020-01-15 00:00:00 Completed [facility] Rho (d) Immune Globulin 2020-01-15 00:00:00 Completed [facility] Rho (d) Immune Globulin 2020-01-15 00:00:00 Completed [facility] Rho (d) Immune Globulin 2020-01-15 00:00:00 Completed [facility] Rho (d) Immune Globulin 2020-01-15 00:00:00 Completed [facility] Rho (d) Immune Globulin 2020-01-15 00:00:00 Completed [facility] Rho (d) Immune Globulin 2020-01-15 00:00:00 Completed [facility] Rho (d) Immune Globulin 2020-01-15 00:00:00 Completed [facility] Rho (d) Immune Globulin 2020-01-15 00:00:00 Completed [facility] Rho (d) Immune Globulin 2020-01-15 00:00:00 Completed [facility] Rho (d) Immune Globulin 2020-01-15 00:00:00 Completed [facility] Rho (d) Immune Globulin 2020-01-15 00:00:00 Completed [facility] Rho (d) Immune Globulin 2020-01-15 00:00:00 Completed [facility] Rho (d) Immune Globulin 2020-01-15 00:00:00 Completed [facility] Rho (d) Immune Globulin 2020-01-15 00:00:00 Completed [facility] Rho (d) Immune Globulin 2020-01-15 00:00:00 Completed [facility] TDAP (ADACEL) VACCINE 2020-01-13 00:00:00 Completed [facility] TDAP (ADACEL) VACCINE 2020-01-13 00:00:00 Completed [facility] TDAP (ADACEL) VACCINE 2020-01-13 00:00:00 Completed [facility] TDAP (ADACEL) VACCINE 2020-01-13 00:00:00 Completed [facility] TDAP (ADACEL) VACCINE 2020-01-13 00:00:00 Completed [facility] TDAP (ADACEL) VACCINE 2020-01-13 00:00:00 Completed [facility] TDAP (ADACEL) VACCINE 2020-01-13 00:00:00 Completed [facility] TDAP (ADACEL) VACCINE 2020-01-13 00:00:00 Completed [facility] TDAP (ADACEL) VACCINE 2020-01-13 00:00:00 Completed [facility] TDAP (ADACEL) VACCINE 2020-01-13 00:00:00 Completed [facility] TDAP (ADACEL) VACCINE 2020-01-13 00:00:00 Completed [facility] TDAP (ADACEL) VACCINE 2020-01-13 00:00:00 Completed [facility] TDAP (ADACEL) VACCINE 2020-01-13 00:00:00 Completed [facility] TDAP (ADACEL) VACCINE 2020-01-13 00:00:00 Completed [facility] TDAP (ADACEL) VACCINE 2020-01-13 00:00:00 Completed [facility] TDAP (ADACEL) VACCINE 2020-01-13 00:00:00 Completed [facility] TDAP (ADACEL) VACCINE 2020-01-13 00:00:00 Completed [facility] TDAP (ADACEL) VACCINE 2020-01-13 00:00:00 Completed [facility] TDAP (ADACEL) VACCINE 2020-01-13 00:00:00 Completed [facility] TDAP (ADACEL) VACCINE 2020-01-13 00:00:00 Completed [facility] TDAP (ADACEL) VACCINE 2020-01-13 00:00:00 Completed [facility] TDAP (ADACEL) VACCINE 2020-01-13 00:00:00 Completed [facility] TDAP (ADACEL) VACCINE 2020-01-13 00:00:00 Completed [facility] Influenza Virus Vaccine Quad .5 mL IM 6+ MO 2019-07-31 00:00:00 Completed [facility] Rho (d) Immune Globulin 2019-07-31 00:00:00 Completed [facility] Influenza Virus Vaccine Quad .5 mL IM 6+ MO 2019-07-31 00:00:00 Completed [facility] Rho (d) Immune Globulin 2019-07-31 00:00:00 Completed [facility] Influenza Virus Vaccine Quad .5 mL IM 6+ MO 2019-07-31 00:00:00 Completed [facility] Rho (d) Immune Globulin 2019-07-31 00:00:00 Completed [facility] Influenza Virus Vaccine Quad .5 mL IM 6+ MO 2019-07-31 00:00:00 Completed [facility] Rho (d) Immune Globulin 2019-07-31 00:00:00 Completed [facility] Influenza Virus Vaccine Quad .5 mL IM 6+ MO 2019-07-31 00:00:00 Completed [facility] Rho (d) Immune Globulin 2019-07-31 00:00:00 Completed [facility] Influenza Virus Vaccine Quad .5 mL IM 6+ MO 2019-07-31 00:00:00 Completed [facility] Rho (d) Immune Globulin 2019-07-31 00:00:00 Completed [facility] Influenza Virus Vaccine Quad .5 mL IM 6+ MO 2019-07-31 00:00:00 Completed [facility] Rho (d) Immune Globulin 2019-07-31 00:00:00 Completed [facility] Influenza Virus Vaccine Quad .5 mL IM 6+ MO 2019-07-31 00:00:00 Completed [facility] Rho (d) Immune Globulin 2019-07-31 00:00:00 Completed [facility] Influenza Virus Vaccine Quad .5 mL IM 6+ MO 2019-07-31 00:00:00 Completed [facility] Rho (d) Immune Globulin 2019-07-31 00:00:00 Completed [facility] Influenza Virus Vaccine Quad .5 mL IM 6+ MO 2019-07-31 00:00:00 Completed [facility] Rho (d) Immune Globulin 2019-07-31 00:00:00 Completed [facility] Influenza Virus Vaccine Quad .5 mL IM 6+ MO (FLUZONE/FLULAVAL/F LUARIX) 2019-07-31 00:00:00 Completed [facility] Rho (d) Immune Globulin 2019-07-31 00:00:00 Completed [facility] Influenza Virus Vaccine Quad .5 mL IM 6+ MO (FLUZONE/FLULAVAL/F LUARIX) 2019-07-31 00:00:00 Completed [facility] Rho (d) Immune Globulin 2019-07-31 00:00:00 Completed [facility] Influenza Virus Vaccine Quad .5 mL IM 6+ MO (FLUZONE/FLULAVAL/F LUARIX) 2019-07-31 00:00:00 Completed [facility] Rho (d) Immune Globulin 2019-07-31 00:00:00 Completed [facility] Influenza Virus Vaccine Quad .5 mL IM 6+ MO (FLUZONE/FLULAVAL/F LUARIX) 2019-07-31 00:00:00 Completed [facility] Rho (d) Immune Globulin 2019-07-31 00:00:00 Completed [facility] Influenza Virus Vaccine Quad .5 mL IM 6+ MO 2019-07-31 00:00:00 Completed [facility] Rho (d) Immune Globulin 2019-07-31 00:00:00 Completed [facility] Influenza Virus Vaccine Quad .5 mL IM 6+ MO 2019-07-31 00:00:00 Completed [facility] Rho (d) Immune Globulin 2019-07-31 00:00:00 Completed [facility] Influenza Virus Vaccine Quad .5 mL IM 6+ MO 2019-07-31 00:00:00 Completed [facility] Rho (d) Immune Globulin 2019-07-31 00:00:00 Completed [facility] Influenza Virus Vaccine Quad .5 mL IM 6+ MO 2019-07-31 00:00:00 Completed [facility] Rho (d) Immune Globulin 2019-07-31 00:00:00 Completed [facility] Influenza Virus Vaccine Quad .5 mL IM 6+ MO 2019-07-31 00:00:00 Completed [facility] Rho (d) Immune Globulin 2019-07-31 00:00:00 Completed [facility] Influenza Virus Vaccine Quad .5 mL IM 6+ MO 2019-07-31 00:00:00 Completed [facility] Rho (d) Immune Globulin 2019-07-31 00:00:00 Completed [facility] Influenza Virus Vaccine Quad .5 mL IM 6+ MO 2019-07-31 00:00:00 Completed [facility] Rho (d) Immune Globulin 2019-07-31 00:00:00 Completed [facility] Influenza Virus Vaccine Quad .5 mL IM 6+ MO 2019-07-31 00:00:00 Completed [facility] Rho (d) Immune Globulin 2019-07-31 00:00:00 Completed [facility] Influenza Virus Vaccine Quad .5 mL IM 6+ MO 2019-07-31 00:00:00 Completed [facility] Rho (d) Immune Globulin 2019-07-31 00:00:00 Completed [facility] Influenza Virus Vaccine Quad .5 mL IM 6+ MO (FLUZONE/FLULAVAL/F LUARIX) Unknown Completed [facility] Rho (d) Immune Globulin Unknown Completed [facility] TDAP (ADACEL) VACCINE Unknown Completed [facility] Influenza Virus Vaccine (3+ yrs) Unknown Completed [facility] Influenza Virus Vaccine Unknown Completed [facility] SARS-COV-2 COVID-19 MODERNA 12+ YRS VACCINE Unknown Completed [facility] Influenza Virus Vaccine Quad .5 mL IM 6+ MO (FLUZONE/FLULAVAL/F LUARIX) Unknown Completed [facility] Rho (d) Immune Globulin Unknown Completed [facility] TDAP (ADACEL) VACCINE Unknown Completed [facility] Influenza Virus Vaccine Quad .5 mL IM 6+ MO (FLUZONE/FLULAVAL/F LUARIX) Unknown Completed [facility] Rho (d) Immune Globulin Unknown Completed [facility] TDAP (ADACEL) VACCINE Unknown Completed [facility] Influenza Virus Vaccine (3+ yrs) Unknown Completed [facility] Influenza Virus Vaccine Unknown Completed [facility] SARS-COV-2 COVID-19 MODERNA 12+ YRS VACCINE Unknown Completed [facility] Influenza Virus Vaccine Quad .5 mL IM 6+ MO (FLUZONE/FLULAVAL/F LUARIX) Unknown Completed [facility] Rho (d) Immune Globulin Unknown Completed [facility] TDAP (ADACEL) VACCINE Unknown Completed [facility] Influenza Virus Vaccine (3+ yrs) Unknown Completed [facility] Influenza Virus Vaccine Unknown Completed [facility] SARS-COV-2 COVID-19 MODERNA 12+ YRS VACCINE Unknown Completed [facility] Influenza Virus Vaccine Quad .5 mL IM 6+ MO (FLUZONE/FLULAVAL/F LUARIX) Unknown Completed [facility] Rho (d) Immune Globulin Unknown Completed [facility] TDAP (ADACEL) VACCINE Unknown Completed [facility] Influenza Virus Vaccine (3+ yrs) Unknown Completed [facility] Influenza Virus Vaccine Unknown Completed [facility] SARS-COV-2 COVID-19 MODERNA 12+ YRS VACCINE Unknown Completed [facility] Influenza Virus Vaccine Quad .5 mL IM 6+ MO (FLUZONE/FLULAVAL/F LUARIX) Unknown Completed [facility] TDAP (ADACEL) VACCINE Unknown Completed [facility] Rho (d) Immune Globulin Unknown Completed [facility] Influenza Virus Vaccine (3+ yrs) Unknown Completed [facility] Influenza Virus Vaccine Unknown Completed [facility] SARS-COV-2 COVID-19 MODERNA 12+ YRS VACCINE Unknown Completed [facility] Influenza Virus Vaccine Quad .5 mL IM 6+ MO (FLUZONE/FLULAVAL/F LUARIX) Unknown Completed [facility] Influenza Virus Vaccine (3+ yrs) Unknown Completed [facility] Influenza Virus Vaccine Unknown Completed [facility] Rho (d) Immune Globulin Unknown Completed [facility] TDAP (ADACEL) VACCINE Unknown Completed [facility] SARS-COV-2 COVID-19 MODERNA 12+ YRS VACCINE Unknown Completed [facility] Influenza Virus Vaccine Quad .5 mL IM 6+ MO (FLUZONE/FLULAVAL/F LUARIX) Unknown Completed [facility] Rho (d) Immune Globulin Unknown Completed [facility] TDAP (ADACEL) VACCINE Unknown Completed [facility] Influenza Virus Vaccine (3+ yrs) Unknown Completed [facility] Influenza Virus Vaccine Unknown Completed [facility] SARS-COV-2 COVID-19 MODERNA 12+ YRS VACCINE Unknown Completed [facility] Influenza Virus Vaccine Quad .5 mL IM 6+ MO (FLUZONE/FLULAVAL/F LUARIX) Unknown Completed [facility] Rho (d) Immune Globulin Unknown Completed [facility] TDAP (ADACEL) VACCINE Unknown Completed [facility] Influenza Virus Vaccine (3+ yrs) Unknown Completed [facility] Influenza Virus Vaccine Unknown Completed [facility] SARS-COV-2 COVID-19 MODERNA 12+ YRS VACCINE Unknown Completed [facility] Influenza Virus Vaccine Quad .5 mL IM 6+ MO (FLUZONE/FLULAVAL/F LUARIX) Unknown Completed [facility] Rho (d) Immune Globulin Unknown Completed [facility] TDAP (ADACEL) VACCINE Unknown Completed [facility] Influenza Virus Vaccine (3+ yrs) Unknown Completed [facility] Influenza Virus Vaccine Unknown Completed [facility] SARS-COV-2 COVID-19 MODERNA 12+ YRS VACCINE Unknown Completed [facility] Influenza Virus Vaccine Quad .5 mL IM 6+ MO (FLUZONE/FLULAVAL/F LUARIX) Unknown Completed [facility] Rho (d) Immune Globulin Unknown Completed [facility] TDAP (ADACEL) VACCINE Unknown Completed [facility] Influenza Virus Vaccine (3+ yrs) Unknown Completed [facility] Influenza Virus Vaccine Unknown Completed [facility] SARS-COV-2 COVID-19 MODERNA 12+ YRS VACCINE Unknown Completed [facility] Influenza Virus Vaccine Quad .5 mL IM 6+ MO (FLUZONE/FLULAVAL/F LUARIX) Unknown Completed [facility] Rho (d) Immune Globulin Unknown Completed [facility] TDAP (ADACEL) VACCINE Unknown Completed [facility] Influenza Virus Vaccine (3+ yrs) Unknown Completed [facility] Influenza Virus Vaccine Unknown Completed [facility] SARS-COV-2 COVID-19 MODERNA 12+ YRS VACCINE Unknown Completed [facility] Influenza Virus Vaccine Quad .5 mL IM 6+ MO (FLUZONE/FLULAVAL/F LUARIX) Unknown Completed [facility] Rho (d) Immune Globulin Unknown Completed [facility] TDAP (ADACEL) VACCINE Unknown Completed [facility] Influenza Virus Vaccine (3+ yrs) Unknown Completed [facility] Influenza Virus Vaccine Unknown Completed [facility] SARS-COV-2 COVID-19 MODERNA 12+ YRS VACCINE Unknown Completed [facility] Influenza Virus Vaccine Quad .5 mL IM 6+ MO (FLUZONE/FLULAVAL/F LUARIX) Unknown Completed [facility] Rho (d) Immune Globulin Unknown Completed [facility] TDAP (ADACEL) VACCINE Unknown Completed [facility] Influenza Virus Vaccine (3+ yrs) Unknown Completed [facility] Influenza Virus Vaccine Unknown Completed [facility] SARS-COV-2 COVID-19 MODERNA 12+ YRS VACCINE Unknown Completed [facility] Influenza Virus Vaccine Quad .5 mL IM 6+ MO (FLUZONE/FLULAVAL/F LUARIX) Unknown Completed [facility] Rho (d) Immune Globulin Unknown Completed [facility] TDAP (ADACEL) VACCINE Unknown Completed [facility] Influenza Virus Vaccine (3+ yrs) Unknown Completed [facility] Influenza Virus Vaccine Unknown Completed [facility] SARS-COV-2 COVID-19 MODERNA 12+ YRS VACCINE Unknown Completed [facility] Influenza Virus Vaccine Quad .5 mL IM 6+ MO (FLUZONE/FLULAVAL/F LUARIX) Unknown Completed [facility] Rho (d) Immune Globulin Unknown Completed [facility] TDAP (ADACEL) VACCINE Unknown Completed [facility] Influenza Virus Vaccine (3+ yrs) Unknown Completed [facility] Influenza Virus Vaccine Unknown Completed [facility] SARS-COV-2 COVID-19 MODERNA 12+ YRS VACCINE Unknown Completed [facility] Influenza Virus Vaccine Quad IM, Preserv and ABX Free 6 MO-64 YRS (FLUCELVAX) Unknown Completed [facility] Influenza Virus Vaccine Quad .5 mL IM 6+ MO (FLUZONE/FLULAVAL/F LUARIX) Unknown Completed [facility] Rho (d) Immune Globulin Unknown Completed [facility] TDAP (ADACEL) VACCINE Unknown Completed [facility] Influenza Virus Vaccine (3+ yrs) Unknown Completed [facility] Influenza Virus Vaccine Unknown Completed [facility] SARS-COV-2 COVID-19 MODERNA 12+ YRS VACCINE Unknown Completed [facility] Influenza Virus Vaccine Quad IM, Preserv and ABX Free 6 MO-64 YRS (FLUCELVAX) Unknown Completed [facility] Influenza Virus Vaccine Quad .5 mL IM 6+ MO (FLUZONE/FLULAVAL/F LUARIX) Unknown Completed [facility] Rho (d) Immune Globulin Unknown Completed [facility] TDAP (ADACEL) VACCINE Unknown Completed [facility] Influenza Virus Vaccine (3+ yrs) Unknown Completed [facility] Influenza Virus Vaccine Unknown Completed [facility] SARS-COV-2 COVID-19 MODERNA 12+ YRS VACCINE Unknown Completed [facility] Influenza Virus Vaccine Quad IM, Preserv and ABX Free 6 MO-64 YRS (FLUCELVAX) Unknown Completed [facility] Influenza Virus Vaccine Quad .5 mL IM 6+ MO (FLUZONE/FLULAVAL/F LUARIX) Unknown Completed [facility] Rho (d) Immune Globulin Unknown Completed [facility] TDAP (ADACEL) VACCINE Unknown Completed [facility] Influenza Virus Vaccine (3+ yrs) Unknown Completed [facility] Influenza Virus Vaccine Unknown Completed [facility] SARS-COV-2 COVID-19 MODERNA 12+ YRS VACCINE Unknown Completed [facility] Influenza Virus Vaccine Quad IM, Preserv and ABX Free 6 MO-64 YRS (FLUCELVAX) Unknown Completed [facility] Influenza Virus Vaccine Quad .5 mL IM 6+ MO (FLUZONE/FLULAVAL/F LUARIX) Unknown Completed [facility] Influenza Virus Vaccine (3+ yrs) Unknown Completed [facility] Influenza Virus Vaccine Unknown Completed [facility] Influenza Virus Vaccine Quad IM, Preserv and ABX Free 6 MO-64 YRS (FLUCELVAX) Unknown Completed [facility] Rho (d) Immune Globulin Unknown Completed [facility] TDAP (ADACEL) VACCINE Unknown Completed [facility] SARS-COV-2 COVID-19 MODERNA 12+ YRS VACCINE Unknown Completed [facility] Influenza Virus Vaccine Quad .5 mL IM 6+ MO (FLUZONE/FLULAVAL/F LUARIX) Unknown Completed [facility] Rho (d) Immune Globulin Unknown Completed [facility] TDAP (ADACEL) VACCINE Unknown Completed [facility] Influenza Virus Vaccine (3+ yrs) Unknown Completed [facility] Influenza Virus Vaccine Unknown Completed [facility] SARS-COV-2 COVID-19 MODERNA 12+ YRS VACCINE Unknown Completed [facility] Influenza Virus Vaccine Quad IM, Preserv and ABX Free 6 MO-64 YRS (FLUCELVAX) Unknown Completed [facility] Influenza Virus Vaccine Quad .5 mL IM 6+ MO (FLUZONE/FLULAVAL/F LUARIX) Unknown Completed [facility] Rho (d) Immune Globulin Unknown Completed [facility] Influenza Virus Vaccine Quad .5 mL IM 6+ MO (FLUZONE/FLULAVAL/F LUARIX) Unknown Completed [facility] Rho (d) Immune Globulin Unknown Completed [facility] TDAP (ADACEL) VACCINE Unknown Completed [facility] Influenza Virus Vaccine (3+ yrs) Unknown Completed [facility] Influenza Virus Vaccine Unknown Completed [facility] SARS-COV-2 COVID-19 MODERNA 12+ YRS VACCINE Unknown Completed [facility] Influenza Virus Vaccine Quad IM, Preserv and ABX Free 6 MO-64 YRS (FLUCELVAX) Unknown Completed [facility] Influenza Virus Vaccine Quad .5 mL IM 6+ MO (FLUZONE/FLULAVAL/F LUARIX) Unknown Completed [facility] Rho (d) Immune Globulin Unknown Completed [facility] TDAP (ADACEL) VACCINE Unknown Completed [facility] Influenza Virus Vaccine (3+ yrs) Unknown Completed [facility] Influenza Virus Vaccine Unknown Completed [facility] SARS-COV-2 COVID-19 MODERNA 12+ YRS VACCINE Unknown Completed [facility] Influenza Virus Vaccine Quad IM, Preserv and ABX Free 6 MO-64 YRS (FLUCELVAX) Unknown Completed [facility] Influenza Virus Vaccine Quad .5 mL IM 6+ MO (FLUZONE/FLULAVAL/F LUARIX) Unknown Completed [facility] Rho (d) Immune Globulin Unknown Completed [facility] TDAP (ADACEL) VACCINE Unknown Completed [facility] Influenza Virus Vaccine (3+ yrs) Unknown Completed [facility] Influenza Virus Vaccine Unknown Completed [facility] SARS-COV-2 COVID-19 MODERNA 12+ YRS VACCINE Unknown Completed [facility] Influenza Virus Vaccine Quad IM, Preserv and ABX Free 6 MO-64 YRS (FLUCELVAX) Unknown Completed [facility] Influenza Virus Vaccine Quad .5 mL IM 6+ MO (FLUZONE/FLULAVAL/F LUARIX) Unknown Completed [facility] Rho (d) Immune Globulin Unknown Completed [facility] TDAP (ADACEL) VACCINE Unknown Completed [facility] Influenza Virus Vaccine (3+ yrs) Unknown Completed [facility] Influenza Virus Vaccine Unknown Completed [facility] SARS-COV-2 COVID-19 MODERNA 12+ YRS VACCINE Unknown Completed [facility] Influenza Virus Vaccine Quad IM, Preserv and ABX Free 6 MO-64 YRS (FLUCELVAX) Unknown Completed [facility] Influenza Virus Vaccine Quad .5 mL IM 6+ MO (FLUZONE/FLULAVAL/F LUARIX) Unknown Completed [facility] Rho (d) Immune Globulin Unknown Completed [facility] TDAP (ADACEL) VACCINE Unknown Completed [facility] Influenza Virus Vaccine (3+ yrs) Unknown Completed [facility] Influenza Virus Vaccine Unknown Completed [facility] SARS-COV-2 COVID-19 MODERNA 12+ YRS VACCINE Unknown Completed [facility] Influenza Virus Vaccine Quad IM, Preserv and ABX Free 6 MO-64 YRS (FLUCELVAX) Unknown Completed [facility] Influenza Virus Vaccine Quad .5 mL IM 6+ MO (FLUZONE/FLULAVAL/F LUARIX) Unknown Completed [facility] Rho (d) Immune Globulin Unknown Completed [facility] TDAP (ADACEL) VACCINE Unknown Completed [facility] Influenza Virus Vaccine (3+ yrs) Unknown Completed [facility] Influenza Virus Vaccine Unknown Completed [facility] SARS-COV-2 COVID-19 MODERNA 12+ YRS VACCINE Unknown Completed [facility] Influenza Virus Vaccine Quad IM, Preserv and ABX Free 6 MO-64 YRS (FLUCELVAX) Unknown Completed [facility] Influenza Virus Vaccine Quad .5 mL IM 6+ MO (FLUZONE/FLULAVAL/F LUARIX) Unknown Completed [facility] Rho (d) Immune Globulin Unknown Completed [facility] TDAP (ADACEL) VACCINE Unknown Completed [facility] Influenza Virus Vaccine (3+ yrs) Unknown Completed [facility] Influenza Virus Vaccine Unknown Completed [facility] SARS-COV-2 COVID-19 MODERNA 12+ YRS VACCINE Unknown Completed [facility] Influenza Virus Vaccine Quad IM, Preserv and ABX Free 6 MO-64 YRS (FLUCELVAX) Unknown Completed [facility] Influenza Virus Vaccine Quad .5 mL IM 6+ MO (FLUZONE/FLULAVAL/F LUARIX) Unknown Completed [facility] Rho (d) Immune Globulin Unknown Completed [facility] TDAP (ADACEL) VACCINE Unknown Completed [facility] Influenza Virus Vaccine (3+ yrs) Unknown Completed [facility] Influenza Virus Vaccine Unknown Completed [facility] SARS-COV-2 COVID-19 MODERNA 12+ YRS VACCINE Unknown Completed [facility] Influenza Virus Vaccine Quad IM, Preserv and ABX Free 6 MO-64 YRS (FLUCELVAX) Unknown Completed [facility] Influenza Virus Vaccine Quad .5 mL IM 6+ MO (FLUZONE/FLULAVAL/F LUARIX) Unknown Completed [facility] Rho (d) Immune Globulin Unknown Completed [facility] TDAP Unknown Completed [facility] Influenza Virus Vaccine (3+ yrs) Unknown Completed [facility] Influenza Virus Vaccine Unknown Completed [facility] SARS-COV-2 COVID-19 MODERNA 12+ YRS VACCINE Unknown Completed [facility] Influenza Virus Vaccine Quad IM, Preserv and ABX Free 6 MO-64 YRS (FLUCELVAX) Unknown Completed [facility] Vital Signs Vital Name Observation Time Observation Value Comments S ource Systolic blood pressure 2024-11-11 15:34:00 106 mm[Hg] [facility] Diastolic blood pressure 2024-11-11 15:34:00 73 mm[Hg] [facility] Heart rate 2024-11-11 15:34:00 91 /min [facility] Body height 2024-11-11 15:34:00 167.6 cm [facility] Body weight 2024-11-11 15:34:00 117.119 kg [facility] BMI 2024-11-11 15:34:00 41.67 kg/m2 [facility] Oxygen saturation in Arterial blood by Pulse oximetry 2024-11-11 15:34:00 99 /min [facility] Systolic blood pressure 2024-08-26 17:12:00 113 mm[Hg] [facility] Diastolic blood pressure 2024-08-26 17:12:00 74 mm[Hg] [facility] Heart rate 2024-08-26 17:12:00 76 /min [facility] Body temperature 2024-08-26 17:12:00 36.61 Ely [facility] Body height 2024-08-26 17:12:00 168.9 cm [facility] Body weight 2024-08-26 17:12:00 119.75 kg [facility] BMI 2024-08-26 17:12:00 41.97 kg/m2 [facility] Oxygen saturation in Arterial blood by Pulse oximetry 2024-08-26 17:12:00 99 /min [facility] Systolic blood pressure 2024-06-22 14:57:00 118 mm[Hg] [facility] Diastolic blood pressure 2024-06-22 14:57:00 82 mm[Hg] [facility] Heart rate 2024-06-22 14:57:00 108 /min [facility] Body temperature 2024-06-22 14:57:00 36.67 Ely [facility] Respiratory rate 2024-06-22 14:57:00 18 /min [facility] Body height 2024-06-22 14:57:00 167.6 cm [facility] Body weight 2024-06-22 14:57:00 120.475 kg [facility] BMI 2024-06-22 14:57:00 42.87 kg/m2 [facility] Systolic blood pressure 2024-04-16 14:42:00 102 mm[Hg] [facility] Diastolic blood pressure 2024-04-16 14:42:00 72 mm[Hg] [facility] Heart rate 2024-04-16 14:42:00 105 /min [facility] Respiratory rate 2024-04-16 14:42:00 16 /min [facility] Body height 2024-04-16 14:42:00 168.9 cm [facility] Body weight 2024-04-16 14:42:00 123.605 kg [facility] BMI 2024-04-16 14:42:00 43.32 kg/m2 [facility] Oxygen saturation in Arterial blood by Pulse oximetry 2024-04-16 14:42:00 98 /min [facility] Systolic blood pressure 2024-01-17 17:55:00 106 mm[Hg] [facility] Diastolic blood pressure 2024-01-17 17:55:00 83 mm[Hg] [facility] Heart rate 2024-01-17 17:55:00 92 /min [facility] Body temperature 2024-01-17 17:55:00 36.56 Ely [facility] Respiratory rate 2024-01-17 17:55:00 18 /min [facility] Body height 2024-01-17 17:55:00 167.5 cm [facility] Body weight 2024-01-17 17:55:00 123.877 kg [facility] BMI 2024-01-17 17:55:00 44.15 kg/m2 [facility] Oxygen saturation in Arterial blood by Pulse oximetry 2024-01-17 17:55:00 96 /min [facility] Systolic blood pressure 2023-08-28 20:21:00 126 mm[Hg] [facility] Diastolic blood pressure 2023-08-28 20:21:00 84 mm[Hg] [facility] Heart rate 2023-08-28 20:21:00 88 /min [facility] Respiratory rate 2023-08-28 20:21:00 18 /min [facility] Body height 2023-08-28 20:21:00 166.4 cm [facility] Body weight 2023-08-28 20:21:00 127.325 kg [facility] BMI 2023-08-28 20:21:00 46.00 kg/m2 [facility] Oxygen saturation in Arterial blood by Pulse oximetry 2023-08-28 20:21:00 97 /min [facility] Systolic blood pressure 2023-03-19 21:41:00 113 mm[Hg] [facility] Diastolic blood pressure 2023-03-19 21:41:00 74 mm[Hg] [facility] Heart rate 2023-03-19 21:41:00 84 /min [facility] Respiratory rate 2023-03-19 21:41:00 20 /min [facility] Body height 2023-03-19 21:41:00 166.5 cm [facility] Body weight 2023-03-19 21:41:00 130.772 kg [facility] BMI 2023-03-19 21:41:00 47.17 [facility] in Arterial blood by Pulse oximetry 2023-03-19 21:41:00 98 /min [facility] Systolic blood pressure 2023-03-08 17:55:00 115 mm[Hg] [facility] Diastolic blood pressure 2023-03-08 17:55:00 77 mm[Hg] [facility] Heart rate 2023-03-08 17:55:00 79 /min [facility] Body temperature 2023-03-08 17:55:00 36.72 Ely [facility] Respiratory rate 2023-03-08 17:55:00 18 /min [facility] Body height 2023-03-08 17:55:00 170.2 cm [facility] Body weight 2023-03-08 17:55:00 130.5 kg [facility] BMI 2023-03-08 17:55:00 45.06 kg/m2 [facility] Oxygen saturation in Arterial blood by Pulse oximetry 2023-03-08 17:55:00 99 /min [facility] Systolic blood pressure 2022-12-17 19:01:00 114 mm[Hg] [facility] Diastolic blood pressure 2022-12-17 19:01:00 77 mm[Hg] [facility] Heart rate 2022-12-17 19:01:00 76 /min [facility] Body temperature 2022-12-17 19:01:00 36.56 Ely [facility] Respiratory rate 2022-12-17 19:01:00 18 /min [facility] Body height 2022-12-17 19:01:00 170.2 cm [facility] Body weight 2022-12-17 19:01:00 127.914 kg [facility] BMI 2022-12-17 19:01:00 44.17 kg/m2 [facility] Body height 2022-05-14 19:39:00 170.2 cm [facility] Body height 2021-11-16 14:06:00 167.6 cm [facility] Procedures Procedure Date / Time Performed Performing Clinicia n Source FLU VACC ([id number]), 6 MO-64 YRS, .5ML, IM, TIV (FLUCELVAX) 2024-11-11 16:03:28 Do Monreal [facility] POCT TEST 2024-06-22 00:00:00 Mitali Fragoso [facility] POCT HEMOGLOBIN A1C TEST 2024-04-16 14:52:00 Hilary Mi [facility] POCT HEMOGLOBIN A1C TEST 2024-01-17 18:26:00 Pooja Russell [facility] ASSIGNMENT OF BENEFITS 2023-06-25 21:18:20 Docto r Unassigned, Kathryn [facility] CONSENT/REFUSAL FOR DIAGNOSIS AND TREATMENT 2023-06-25 21:17:55 Doctor Unassigned, Kathryn [facility] ASSIGNMENT OF BENEFITS 2022-05-14 19:35:06 Docto r Unassigned, Kathryn [facility] REFERRAL- REQUEST/RESPONSE 2021-12-08 05:01:00 Doctor Unassigned, Kathryn [facility] Encounters Start Date/Time End Date/Time Encounter Type Admission Type Attending [facility] Facility Care Department Encounter ID Source 2021-06-16 11:22:18 Emergency [facility] [id number] [facility] 2021-06-16 08:08:38 Outpatient P IAMB ALEXEY [id number] [facility] 2021-06-16 07:30:59 Outpatient P IAMB ALEXEY [id number] [facility] 2021-06-16 00:55:35 Outpatient P IAMB ALEXEY [id number] [facility] 2021-06-16 00:55:09 Outpatient P IAMB ALEXEY [id number] [facility] 2024-12-14 00:00:00 2024-12-14 15:22:21 Telephone Do Monreal [facility] [id number] [id number] [id number] [id number] [facility] 2024-11-16 00:00:00 2024-11-18 08:01:37 Telephone Leonidas Hilary [facility] [id number] [id number] [id number] [id number] [facility] 2024-11-16 00:00:00 2024-11-16 13:31:03 Specialty Pharmacy Rochelle Tariq Brooke [facility] 1.840.114 350.1.13.10 [id number] [id number] [facility] 2024-11-13 09:45:00 2024-11-13 09:45:00 Outpatient R HERR-SHAREE S, MITALI HERR-SHAREE S, MITALI [facility] [id number] [facility] 2024-11-11 11:30:00 2024-11-11 11:45:00 Tiler'S Assistant Visit Lab, Ang - Db Godfrey, Serjioa Lab, Ang - Db [facility] [id number] 350.1.13.10 [id number] [id number] [facility] 2024-11-11 10:40:00 2024-11-11 11:01:24 Outpatient R MONREAL, FAKEHA MONREAL, FAKEHA [facility] [id number] [facility] 2024-11-11 10:40:00 2024-11-11 11:01:24 Office Visit Serjio Monreala [facility] [id number] [id number] [id number] [id number] [facility] 2024-10-02 00:00:00 2024-11-07 18:20:27 Patient Secure Msg Doctor Unassigned, Kathryn Doctor Unassigned, Kathryn [facility] 1..840.114 350.1.13.10 4.2.7.2.686 [id number] [facility] 2024-10-19 14:00:00 2024-10-19 14:00:00 Outpatient R [facility] [id number] [facility] 2024-10-14 00:00:00 2024-10-16 04:48:23 Refill Jada Rose [facility] 1..840.114 350.1.13.10 4.2.7.2.686 [id number] [facility] 2024-10-14 13:00:00 2024-10-14 13:00:00 Outpatient R MONREAL, FAKEHA MONREAL, FAKEHA [facility] [id number] [facility] 2024-10-13 00:00:00 2024-10-13 10:28:33 Refill Eduar Escalante [facility] 1.840.114 350.1.13.10 4.2.7.2.686 [id number] [facility] 2024-10-05 10:30:00 2024-10-05 10:30:00 Outpatient R HERR-SHAREE S, MITALI HERR-SHAREE S, MITALI [facility] [id number] [facility] 2024-01-14 00:00:00 2024-10-03 07:41:16 Orders Only YbarraDoreen, Doreen [facility] 1..840.114 350.1.13.10 4.2.7.2.686 [id number] [facility] 2023-03-04 00:00:00 2024-10-03 02:40:09 Orders Only YbarraDoreen, Doreen [facility] 1..840.114 350.1.13.10 4.2.7.2.686 [id number] [facility] 2023-03-18 00:00:00 2024-10-03 02:39:50 Orders Only Erin, Doreen Ybarra, Doreen [facility] [id number] 350.1.13.10 4.2.7.2.686 [id number] [facility] 2023-06-24 00:00:00 2024-10-03 02:37:18 Orders Only Erin, Doreen Ybarra, Doreen [facility] [id number] 350.1.13.10 4.2.7.2.686 [id number] [facility] 2023-08-27 00:00:00 2024-10-03 02:36:04 Orders Only Erin, Doreen Ybarra, Doreen [facility] [id number] 350.1.13.10 4.2.7.2.686 [id number] [facility] [facility] 2023-08-28 00:00:00 2024-10-03 02:36:01 Orders Only Erin, Doreen Ybarra, Doreen [facility] OFF[facility] 1.2.840.114 350.1.13.10 4.2.7.2.686 [id number] 044 [id number] [facility] 2023-11-25 00:00:00 2024-10-03 02:26:18 Orders Only Ybarra, Doreen Ybarra, Doreen [facility] OFF[facility] 1.2.840.114 350.1.13.10 4.2.7.2.686 [id number] [id number] [facility] 2024-09-28 11:15:00 2024-09-28 11:15:00 Outpatient JOSÉ LUIS HERNANDEZ [facility] [id number] [facility] 2024-09-23 13:00:00 2024-09-23 13:00:00 Outpatient R MONREAL, SERJIOA MONREAL, FAKCHAYAA [facility] [id number] [facility] 2024-09-04 00:00:00 2024-09-07 08:13:25 Eduar Somers [facility] MED[facility] OFF[facility] BUILD[facility] 1.2.840.114 350.1.13.10 4.2.7.2.686 [id number] 044 [id number] [facility] 2024-09-02 11:20:00 2024-09-02 11:20:00 Outpatient R MONREAL, SERJIOA MONREAL, SERJIOA [facility] [id number] [facility] 2024-08-28 10:30:00 2024-08-28 10:30:00 Outpatient R CARMENZA-SHAREE S, MITALI CARMENZA-SHAREE S, MITALI [facility] [id number] [facility] 2024-08-26 00:00:00 2024-08-27 10:40:54 Telephone Jada Rose Juanjose [facility] MED[facility] OFF[facility] BUILDING 1.2.840.114 350.1.13.10 4.2.7.2.686 [id number] 044 [id number] [facility] 2024-08-26 00:00:00 2024-08-26 13:15:30 Telephone Jada Rose Juanjose [facility] MED[facility] OFFICE BUILDING 1.2.840.114 350.1.13.10 4.2.7.2.686 [id number] 044 [id number] [facility] 2024-08-26 11:30:00 2024-08-26 11:38:15 Outpatient R JADA ROSE [facility] [id number] [facility] 2024-08-26 11:30:00 2024-08-26 11:38:15 Office Visit Jada Rose [facility] 1.2.840.114 350.1.13.10 4.2.7.2.686 [id number] 044 [id number] [facility] 2024-08-26 11:30:00 2024-08-26 11:30:00 Outpatient R JADA ROSE [facility] [id number] [facility] 2024-08-14 00:00:00 2024-08-17 14:14:38 Telephone Leonidas Hilary [facility] MED[facility] OFFICE BUILDING 1.2.840.114 350.1.13.10 4.2.7.2.686 [id number] 044 [id number] [facility] 2024-08-14 10:45:00 2024-08-14 10:45:00 Outpatient R HERR-SHAREE S, MITALI HERR-SHAREE S, MITALI [facility] [id number] [facility] 2024-07-31 09:30:00 2024-07-31 09:30:00 Outpatient R JADA ROSE [facility] [id number] [facility] 2024-07-27 16:20:00 2024-07-27 16:20:00 Outpatient R ASAELMaurisioHILARY [facility] [id number] [facility] 2024-07-13 14:15:00 2024-07-13 14:15:00 Outpatient R HERR-SHAREE S, MITALI HERR-SHAREE S, MITALI [facility] [id number] [facility] 2024-06-30 00:00:00 2024-07-09 15:40:40 Eduar Somers [facility] MED[facility] OFF[facility] BUILD[facility] 1.2.840.114 350.1.13.10 4.2.7.2.686 [id number] 044 [id number] [facility] 2024-07-06 00:00:00 2024-07-09 15:06:48 Telephone Hilary Mi [facility] RICHARD?[facility] 1.2840.114 350.1.13.10 4.2.7.2.686 [id number] 044 [id number] [facility] 2024-06-25 00:00:00 2024-06-29 10:40:59 Refill Wendy Escalantent Karon [facility]ICH[facility] 1.2840.114 350.1.13.10 4.2.7.2.686 [id number] 044 [id number] [facility] 2024-05-19 00:00:00 2024-06-25 10:31:19 Refill Wendy Escalantent Karon [facility] RICH[facility] 1.2840.114 350.1.13.10 4.2.7.2.686 [id number] [id number] [facility] 2024-06-23 10:30:00 2024-06-23 10:30:00 Outpatient R QUINCY GARCIA VIEN [facility] [id number] [facility] 2024-06-22 08:45:00 2024-06-22 09:28:59 Outpatient R HERR-SHAREE S, MITALI HERR-SHAREE S, MITALI [facility] [id number] [facility] 2024-06-22 08:45:00 2024-06-22 09:28:59 Office Visit Herr-Sharee s, Mitali [facility] BUILDING 1.2840.114 350.1.13.10 4.2.7.2.686 [id number] [facility] 2024-06-19 00:00:00 2024-06-19 15:59:09 Telephone [facility] 1.2840.114 350.1.13.10 4.2.7.2.686 [id number] [facility] 2024-06-19 09:00:00 2024-06-19 09:00:00 Outpatient R HERR-SHAREE S, MITALI HERR-SHAREE S, MITALI [facility] [id number] [facility] 2024-06-15 13:30:00 2024-06-15 13:30:00 Outpatient R HERR-SHAREE S, MITALI HERR-SHAREE S, MITALI [facility] [id number] [facility] 2024-06-03 00:00:00 2024-06-04 13:24:26 Telephone Leonidas [facility] MEDICAL OFFICE BUILDING 1.2.840.114 350.1.13.10 4.2.7.2.686 [id number] 044 [id number] [facility] 2024-05-11 00:00:00 2024-05-18 13:07:14 Telephone Leonidas [facility] MEDICAL OFFICE BUILDING 1.2.840.114 350.1.13.10 4.2.7.2.686 [id number] 044 [id number] [facility] 2024-05-07 00:00:00 2024-05-07 09:41:22 Specialty Pharmacy Riki Martinez [facility] 1.2.840.114 350.1.13.10 4.2.7.2.686 [id number] 016 [id number] [facility] 2024-04-27 00:00:00 2024-04-28 09:28:19 Eduar Somers [facility] MEDICAL OFFICE BUILDING 1.2.840.114 350.1.13.10 4.2.7.2.686 [id number] 044 [id number] [facility] 2024-04-21 00:00:00 2024-04-21 14:51:24 Telephone Leonidas [facility] MED[facility] OFFICE BUILDING 1.2.840.114 350.1.13.10 4.2.7.2.686 [id number] 044 [id number] [facility] 2024-04-21 13:40:00 2024-04-21 13:40:00 Outpatient R HILARY MI [facility] [id number] [facility] 2024-04-16 09:40:00 2024-04-16 10:06:56 Outpatient R HILARY MI [facility] [id number] [facility] 2024-04-16 09:40:00 2024-04-16 10:06:56 Office Visit Leonidas [facility] MEDICAL OFFICE BUILDING 1.2.840.114 350.1.13.10 4.2.7.2.686 [id number] 044 [id number] [facility] 2024-04-08 00:00:00 2024-04-08 11:12:51 Specialty Pharmacy Nimo Mishra Sudha [facility] 1.2.840.114 350.1.13.10 4.2.7.2.686 [id number] [id number] [facility] 2024-04-07 11:15:00 2024-04-07 11:15:00 Outpatient LORI GOINS [facility] [id number] [facility] 2024-04-02 00:00:00 2024-04-03 12:12:43 Telephone Nimo Mishra Sudha [facility] 1.2.840.114 350.1.13.10 4.2.7.2.686 [id number] [id number] [facility] 2024-04-03 11:15:00 2024-04-03 11:15:00 Outpatient LORI GOINS [facility] [id number] [facility] 2024-04-01 13:45:00 2024-04-01 13:45:00 Outpatient LORI GOINS [facility] [id number] [facility] 2024-03-31 14:00:00 2024-03-31 14:00:00 Outpatient LORI GOINS [facility] [id number] [facility] 2024-02-25 00:00:00 2024-03-28 18:20:37 Patient Secure Msg Doctor Unassigned, Kathryn Doctor Unassigned, Kathryn [facility] 1.2840.114 350.1.13.10 4.2.7.2.686 [id number] 016 [id number] [facility] 2024-03-06 00:00:00 2024-03-06 12:31:21 Telephone Tad [facility] ([facility]) 1.840.114 350.1.13.10 4.2.7.2.686 [id number] 016 [id number] [facility] 2024-03-06 11:00:00 2024-03-06 11:00:00 Outpatient R MITALI ZARAGOZA S, MITALI [facility] [id number] [facility] 2024-02-07 00:00:00 2024-02-10 09:39:19 Telephone Tad [facility] ([facility]) 1.2840.114 350.1.13.10 4.2.7.2.686 [id number] 016 [id number] [facility] 2019-12-01 00:00:00 2024-02-04 02:23:53 Mobile Device Encounter Bayron Clemons [facility] 1.2840.114 350.1.13.10 4.2.7.2.686 [id number] [facility] 2024-01-29 00:00:00 2024-01-29 13:31:07 Telephone Pooja Russell [facility] 1.2840.114 350.1.13.10 4.2.7.2.686 [id number] 044 [id number] [facility] 2024-01-17 13:00:00 2024-01-17 13:50:07 Outpatient R DREW KASIAPOOJA [facility] [id number] [facility] 2024-01-17 13:00:00 2024-01-17 13:50:07 Office Visit Drew KasiaPooja Kody [facility] RICH[facility] 1.2840.114 350.1.13.10 4.2.7.2.686 [id number] 044 [id number] [facility] 2024-01-08 00:00:00 2024-01-08 17:06:56 Telephone Nimo Mishra [facility] ([facility]) 1.2840.114 350.1.13.10 4.2.7.2.686 [id number] 016 [id number] [facility] 2024-01-07 00:00:00 2024-01-08 10:20:13 Telephone Drew SouravPooja Kody [facility] 1.2840.114 350.1.13.10 4.2.7.2.686 [id number] 044 [id number] [facility] 2024-01-08 00:00:00 2024-01-08 10:14:32 Refill Pooja Russell Kody [facility] 1.2840.114 350.1.13.10 4.2.7.2.686 [id number] 044 [id number] [facility] 2024-01-06 00:00:00 2024-01-07 15:20:22 Refill Pooja Russell Kody [facility] OFFICE BUILDING 1.2.840.114 350.1.13.10 4.2.7.2.686 [id number] 044 [id number] [facility] 2023-12-23 13:30:00 2023-12-23 13:30:00 Outpatient R DAYNA Posada, MITALI DAYNA S, MITALI [facility] [id number] [facility] 2023-11-27 14:40:00 2023-11-27 14:40:00 Outpatient R POOJA RUSSELL [facility] [id number] [facility] 2023-11-20 00:00:00 2023-11-20 00:00:00 Case Management Contreras, Matilde PATEL 1.2840.114 350.1.13.10 4.2.7.2.686 [id number] 086 [id number] [facility] 2023-11-20 00:00:00 2023-11-20 00:00:00 Telephone Contreras, Matilde PATEL 1.2840.114 350.1.13.10 4.2.7.2.686 [id number] [id number] [facility] 2023-11-19 00:00:00 2023-11-19 00:00:00 Telephone Nimo Mishra [facility] ([facility]) 1.20.114 350.1.13.10 4.2.7.2.686 [id number] 016 [id number] [facility] 2023-10-31 00:00:00 2023-10-31 00:00:00 Telephone Riki Martinez [facility] 1.20.114 350.1.13.10 4.2.7.2.686 [id number] 028 [id number] [facility] 2023-10-31 00:00:00 2023-10-31 00:00:00 Telephone Riki Martinez [facility] 1.2.840.114 350.1.13.10 4.2.7.2.686 [id number] 028 [id number] [facility] 2023-10-24 00:00:00 2023-10-24 00:00:00 Telephone MishraNimo [facility] ([facility]) 1.2.840.114 350.1.13.10 4.2.7.2.686 [id number] 016 [id number] [facility] 2023-09-25 13:45:00 2023-09-25 13:45:00 Outpatient R [facility] [id number] [facility] 2023-09-06 00:00:00 2023-09-06 00:00:00 Telephone Pooja Russell [facility] MEDICAL OFFICE BUILDING 1.2840.114 350.1.13.10 4.2.7.2.686 [id number] 044 [id number] [facility] 2023-09-02 00:00:00 2023-09-02 00:00:00 Patient Secure Msg Doctor Unassigned, Kathryn [facility] MED[facility] OFFICE BUILDING 1.2840.114 350.1.13.10 4.2.7.2.686 [id number] 044 [id number] [facility] 2023-08-28 14:45:00 2023-08-28 15:00:00 Tiler'S Assistant Visit Lab, Pooja Gay [facility] MEDICAL OFFICE BUILDING 1.2840.114 350.1.13.10 4.2.7.2.686 [id number] [facility] 2023-08-28 14:20:00 2023-08-28 14:47:12 Outpatient R POOJA RUSSELL [facility] [id number] [facility] 2023-08-28 14:20:00 2023-08-28 14:47:12 Office Visit Pooja Russell [facility] OFFICE BUILDING 1.2.840.114 350.1.13.10 4.2.7.2.686 [id number] 044 [id number] [facility] 2023-08-28 13:20:00 2023-08-28 13:20:00 Outpatient R DREWSOURAV HAQUEINE [facility] [id number] [facility] 2023-08-28 00:00:00 2023-08-28 00:00:00 Telephone Pooja Russell [facility] OFFICE BUILDING 1.2.840.114 350.1.13.10 4.2.7.2.686 [id number] 044 [id number] [facility] 2023-07-19 11:15:00 2023-07-19 11:15:00 Outpatient R BRIDGET DE LA CRUZ CRAIG [facility] [id number] [facility] 2023-07-03 15:15:00 2023-07-03 15:15:00 Outpatient R BRIDGET DE LA CRUZ CRAIG [facility] [id number] [facility] 2023-06-25 15:30:00 2023-06-25 15:30:00 Outpatient R STALIN COOPER [facility] [id number] [facility] 2023-06-25 00:00:00 2023-06-25 00:00:00 Nurse Triage Pooja Russell [facility] 1.2.840.114 350.1.13.10 4.2.7.2.686 [id number] 044 [id number] [facility] 2023-06-19 15:15:00 2023-06-19 15:15:00 Outpatient R [facility] [id number] [facility] 2023-06-12 14:15:00 2023-06-12 14:15:00 Outpatient R BRIDGET DE LA CRUZ CRAIG [facility] [id number] [facility] 2023-05-21 00:00:00 2023-05-21 00:00:00 Telephone Dayna alvarezMitali [facility] BUILDING 1..840.114 350.1.13.10 4.2.7.2.686 [id number] [facility] 2023-05-10 13:00:00 2023-05-10 13:00:00 Outpatient R [facility] [id number] [facility] 2023-05-01 00:00:00 2023-05-01 00:00:00 Telephone Pooja Russell [facility] BUILDING 1..840.114 350.1.13.10 4.2.7.2.686 [id number] 044 [id number] [facility] 2023-04-17 13:30:00 2023-04-17 13:30:00 Outpatient R D ELA CRUZBRIDGET [facility] [id number] [facility] 2023-04-12 13:00:00 2023-04-12 13:00:00 Outpatient R DE LA CRUZBRIDGET [facility] [id number] [facility] 2023-04-09 00:00:00 2023-04-09 00:00:00 Refill Pooja Russell [facility] BUILDING 1..840.114 350.1.13.10 4.2.7.2.686 [id number] 044 [id number] [facility] 2023-04-04 00:00:00 2023-04-04 00:00:00 Telephone Pooja Russell [facility] OFFICE BUILDING 1..840.114 350.1.13.10 4.2.7.2.686 [id number] 044 [id number] [facility] 2023-04-04 00:00:00 2023-04-04 00:00:00 Telephone Eduar Escalante [facility] 1.840.114 350.1.13.10 4.2.7.2.686 [id number] [facility] 2023-04-01 13:30:00 2023-04-01 13:30:00 Outpatient R EDUAR ESCALANTE BRENT [facility] [id number] [facility] 2023-03-19 16:20:00 2023-03-19 17:01:02 Outpatient R POOJA RUSSELL [facility] [id number] [facility] 2023-03-19 16:20:00 2023-03-19 17:01:02 Office Visit Pooja Russell [facility] MEDICAL OFFICE BUILDING 1.2840.114 350.1.13.10 4.2.7.2.686 [id number] 044 [id number] [facility] 2023-03-14 00:00:00 2023-03-14 00:00:00 [facility] 1.2840.114 350.1.13.10 4.2.7.2.686 [id number] [id number] [facility] 2023-03-12 00:00:00 2023-03-12 00:00:00 Telephone [facility]ILD[facility] 1.2840.114 350.1.13.10 4.2.7.2.686 [id number] [facility] 2023-03-11 15:15:00 2023-03-11 15:30:00 Tiler'S Assistant Visit Lab, Mukesh - Pooja Saunders [facility] OFF[facility] BUILDING 1.2840.114 350.1.13.10 4.2.7.2.686 [id number] [facility] 2023-03-11 15:15:00 2023-03-11 15:15:00 Outpatient R POOJA RUSSELL [facility] [id number] [facility] 2023-03-08 13:30:00 2023-03-08 13:45:46 Tiler'S Assistant Visit Lab, Ang - Pooja Saunders [facility] OFFICE BUILDING 1.2.840.114 350.1.13.10 4.2.7.2.686 [id number] [facility] 2023-03-08 13:30:00 2023-03-08 13:30:00 Outpatient R POOJA RUSSELL [facility] [id number] [facility] 2023-03-08 13:00:00 2023-03-08 13:29:40 Office Visit Pooja Russell [facility] MED[facility] OFFICE BUILDING 1.2.840.114 350.1.13.10 4.2.7.2.686 [id number] [id number] [facility] 2022-12-17 14:00:00 2022-12-17 14:24:37 Outpatient R HERR-SHAREE S, MITALI HERR-SHAREE S, MITALI [facility] [id number] [facility] 2022-12-17 14:00:00 2022-12-17 14:24:37 Office Visit Herr-Sharee s, Mitali [facility] BUILD[facility] 1.2.840.114 350.1.13.10 4.2.7.2.686 [id number] [facility] 2022-11-22 11:15:00 2022-11-22 11:15:00 Outpatient R EDUAR ESCALANTE BRENT [facility] [id number] [facility] 2022-11-22 00:00:00 2022-11-22 00:00:00 Eduar Somers [facility] 1.0.114 350.1.13.10 4.2.7.2.686 [id number] [facility] 2022-11-01 14:00:00 2022-11-01 14:00:00 Outpatient [facility] [id number] [facility] 2022-09-27 14:30:00 2022-09-27 14:30:00 Outpatient Ioana CLEMONS BAYRON [facility] [id number] [facility] 2022-08-30 13:30:00 2022-08-30 13:30:00 Outpatient QUINCY ORTIZ [facility] [id number] [facility] 2022-05-14 15:00:00 2022-05-14 15:00:00 Office Visit Eduar Escalante [facility] 1.0.114 350.1.13.10 4.2.7.2.686 [id number] [facility] 2022-05-14 15:00:00 2022-05-14 14:54:52 Outpatient EDUAR GONZALEZ [facility] [id number] [facility] 2022-05-14 00:00:00 2022-05-14 00:00:00 Orders Only Doctor Unassigned, Kathryn [facility] 1.0.114 350.1.13.10 4.2.7.2.686 [id number] [facility] 2022-04-03 00:00:00 2022-04-03 00:00:00 Telephone Kacy Sanchez [facility] ([facility] 1.0.114 350.1.13.10 4.2.7.2.686 [id number] [facility] 2022-03-23 00:00:00 2022-03-23 00:00:00 Telephone Theron Gonzalez [facility] ([facility]) 1.2.840.114 350.1.13.10 4.2.7.2.686 [id number] [id number] [facility] 2022-03-19 00:00:00 2022-03-19 00:00:00 Patient Secure Msg Doctor Unassigned, Kathryn [facility] 1.2.840.114 350.1.13.10 4.2.7.2.686 [id number] [facility] 2022-03-16 00:00:00 2022-03-16 00:00[facility] 1.[facility]40.114 350.1.13.10 4.2.7.2.686 [id number] [facility] 2022-02-02 10:45:00 2022-02-02 10:45:00 Outpatient MICHAELA PENDLETON [facility] [id number] [facility] 2021-12-08 00:00:00 2021-12-08 00:00:00 Orders Only Doctor Unassigned, Kathryn [facility] 1.2840.114 350.1.13.10 4.2.7.2.686 [id number] [facility] 2021-11-20 00:00:00 2021-11-20 00:00:[facility] 1.2840.114 350.1.13.10 4.2.7.2.686 [id number] 027 [id number] [facility] 2021-11-18 00:00:00 2021-11-18 00:00:00 Telephone Oleg [facility] 1.2840.114 350.1.13.10 4.2.7.2.686 [id number] [id number] [facility] 2021-11-16 10:15:00 2021-11-16 10:15:00 Outpatient R DANIELE ROBERTSON [facility] [id number] [facility] 2021-11-16 10:15:00 2021-11-16 10:15:00 Tiler'S Assistant Visit [facility] Ailyn [facility] 1..114 350.1.13.10 4.2.7.2.686 [id number] [facility] 2021-11-16 09:00:00 2021-11-16 09:18:58 [facility]..114 350.1.13.10 4.2.7.2.686 [id number] [facility] 2021-11-16 09:00:00 2021-11-16 09:18:58 Outpatient R [facility]N [facility] [id number] [facility] 2021-10-09 13:45:00 2021-10-09 13:45:00 Outpatient R FRITZ ESCALANTE [facility] [id number] [facility] 2021-09-06 11:00:00 2021-09-06 11:00:00 Outpatient R [facility] [id number] [facility] 2021-08-31 00:00:00 2021-08-31 00:00:00 Case Management Bayron Clemons [facility] 1..840.114 350.1.13.10 4.2.7.2.686 [id number] [facility] 2021-08-30 13:30:00 2021-08-30 14:20:24 Outpatient R QUINCY GARCIA [facility] [id number] [facility] 2021-08-30 13:30:00 2021-08-30 14:20:24 Office Visit Quincy Garcia [facility] 1..840.114 350.1.13.10 4.2.7.2.686 [id number] 134 [id number] [facility] 2021-07-07 10:45:00 2021-07-07 10:45:00 Outpatient MICHAELA PENDLETON [facility] [id number] [facility] 2021-07-03 13:30:00 2021-07-03 13:30:00 Outpatient QUINCY ORTIZ [facility] [id number] [facility] 2021-07-03 08:00:00 2021-07-03 08:00:00 Outpatient QUINCY ORTIZ [facility] [id number] [facility] 2021-06-15 15:07:28 2021-06-15 16:26:12 Office Visit Quincy Garcia [facility] ..840.114 350.1.13.10 4.2.7.2.686 [id number] 134 [id number] [facility] 2021-06-15 15:00:00 2021-06-15 16:26:12 Outpatient QUINCY ORTIZ [facility] [id number] [facility] 2021-06-15 15:00:00 2021-06-15 15:00:00 Outpatient Ioana GARCIA QUINCY [facility] [id number] [facility] 2021-06-15 00:00:00 2021-06-15 00:00:00 Orders Only Doctor Unassigned, Kathryn [facility] ..[id number] [facility] 2021-05-29 13:45:00 2021-05-29 13:45:00 Outpatient EDUAR GONZALEZ BRENT [facility] [id number] [facility] 2021-04-28 10:30:00 2021-04-28 10:30:00 Outpatient MICHAELA PENDLETON [facility] [id number] [facility] 2021-03-29 14:45:00 2021-03-29 14:45:00 Outpatient R BAYRON CLEMONS [facility] [id number] [facility] 2021-03-28 15:00:00 2021-03-28 15:00:00 Outpatient R QUINCY GARCIA [facility] [id number] [facility] 2021-03-27 14:30:00 2021-03-27 14:30:00 Outpatient R [facility] [id number] [facility] 2021-03-24 15:00:00 2021-03-24 15:00:00 Outpatient R [facility] [id number] [facility] 2021-03-21 14:00:00 2021-03-21 14:00:00 Outpatient R [facility] [id number] [facility] 2021-03-14 14:30:00 2021-03-14 14:30:00 Outpatient R [facility] [id number] [facility] 2021-03-09 08:30:00 2021-03-09 08:30:00 Outpatient R ERNESTO ANDERSON [facility] [id number] [facility] 2021-03-02 11:00:00 2021-03-02 11:00:00 Outpatient R ERNESTO ANDERSON [facility] [id number] [facility] 2020-12-19 14:00:00 2020-12-19 14:00:00 Outpatient R [facility] [id number] [facility] 2020-11-21 13:00:00 2020-11-21 13:00:00 Outpatient R RITIKA AMES [facility] [id number] [facility] 2020-10-10 13:00:00 2020-10-10 13:00:00 Outpatient R RITIKA AMES [facility] [id number] [facility] 2020-09-26 10:30:00 2020-09-26 10:30:00 Outpatient R [facility] [id number] [facility] 2020-07-01 10:00:00 2020-07-01 10:00:00 Outpatient R [facility] [id number] [facility] 2020-06-30 14:00:00 2020-06-30 14:00:00 Outpatient Ioana MUHAMMADBAYRON MEDRANO [facility] [id number] [facility] 2020-06-28 10:30:00 2020-06-28 10:30:00 Outpatient QUINCY ORTIZ [facility] [id number] [facility] 2020-05-25 00:00:00 2020-05-25 00:00:00 Patient Secure Msg Doctor Unassigned, Kathryn [facility] [id number] [facility] 2020-05-19 16:00:00 2020-05-19 16:00:00 Outpatient QUINCY ORTIZ [facility] [id number] [facility] 2020-05-18 08:45:00 2020-05-18 08:45:00 Outpatient CARYL GAR [facility] [id number] [facility] 2020-05-11 13:00:00 2020-05-11 13:00:00 Outpatient CARLY GAR [facility] [id number] [facility] 2020-05-09 13:45:00 2020-05-09 13:45:00 Outpatient VIOLETTA OLIVAS [facility] [id number] [facility] 2020-05-03 14:45:00 2020-05-03 14:45:00 Outpatient QUINCY ORTIZ [facility] [id number] [facility] 2020-04-29 16:15:00 2020-04-29 16:15:00 Outpatient QUINCY ORTIZ [facility] [id number] [facility] 2020 14:45:00 2020 14:45:00 Outpatient QUINCY ORTIZ [facility] [id number] [facility] 2020-04-15 15:15:00 2020-04-15 15:15:00 Outpatient R QUINCY GARCIA [facility] [id number] [facility] 2020-04-11 10:30:00 2020-04-11 10:30:00 Outpatient R QUINCY GARCIA [facility] [id number] [facility] 2020-04-08 15:15:00 2020-04-08 15:15:00 Outpatient R QUINCY GARCIA [facility] [id number] [facility] 2020-04-08 15:00:00 2020-04-08 15:00:00 Outpatient R [facility] [id number] [facility] 2020-04-01 15:30:00 2020-04-01 15:30:00 Outpatient R [facility] [id number] [facility] 2020-03-29 15:30:00 2020-03-29 15:30:00 Outpatient R [facility] [id number] [facility] 2020-03-28 10:30:00 2020-03-28 10:30:00 Outpatient R QUINCY GARCIA [facility] [id number] [facility] 2020-03-25 14:30:00 2020-03-25 14:30:00 Outpatient R [facility] [id number] [facility] [place] [facility] 2020-03-25 10:30:00 2020-03-25 10:30:00 Outpatient R [facility] [id number] [facility] 2020-03-23 16:30:00 2020-03-23 16:30:00 Outpatient R MACKENZIE MULLINS [facility] [id number] [facility] 2020-03-23 13:30:00 2020-03-23 13:30:00 Outpatient R KAREN FERRER [facility] [id number] [facility] 2020-03-16 14:00:00 2020-03-16 14:00:00 Outpatient R [facility] [id number] [facility] 2020-03-10 10:15:00 2020-03-10 10:15:00 Outpatient R [facility] [id number] [facility] 2020-03-09 10:30:00 2020-03-09 10:30:00 Outpatient R [facility] [id number] [facility] 2020-03-07 14:00:00 2020-03-07 14:00:00 Outpatient R QUINCY GARCIA [facility] [id number] [facility] 2020-03-04 15:00:00 2020-03-04 15:00:00 Outpatient P [facility] [id number] [facility] 2020-03-02 13:00:00 2020-03-02 13:00:00 Outpatient R [facility] [id number] [facility] 2020-02-29 11:00:00 2020-02-29 11:00:00 Outpatient R [facility] [id number] [facility] 2020-02-22 11:00:00 2020-02-22 11:00:00 Outpatient R [facility] [id number] [facility] 2020-02-19 15:00:00 2020-02-19 15:00:00 Outpatient R [facility] [id number] [facility] 2020-02-15 11:00:00 2020-02-15 11:00:00 Outpatient R [facility] [id number] [facility] 2020-02-11 11:00:00 2020-02-11 11:00:00 Outpatient R [facility] [id number] [facility] 2020-02-08 10:00:00 2020-02-08 10:00:00 Outpatient R [facility] [id number] [facility] 2020-02-05 14:00:00 2020-02-05 14:00:00 Outpatient R [facility] [id number] [facility] 2020-02-04 14:00:00 2020-02-04 14:00:00 Outpatient R [facility] [id number] [facility] 2020-02-04 13:00:00 2020-02-04 13:00:00 Outpatient R [facility] [id number] [facility] 2020-02-04 10:00:00 2020-02-04 10:00:00 Outpatient R [facility] [id number] [facility] 2020-02-01 14:00:00 2020-02-01 14:00:00 Outpatient R [facility] [id number] [facility] 2020-01-28 13:15:00 2020-01-28 13:15:00 Outpatient R QUINCY GARCIA [facility] [id number] [facility] 2020-01-28 11:30:00 2020-01-28 11:30:00 Outpatient R QUINCY GARCIA [facility] [id number] [facility] 2020-01-15 10:00:00 2020-01-15 10:00:00 Outpatient R [facility] [id number] [facility] 2020-01-13 11:15:00 2020-01-13 11:15:00 Outpatient R QUINCY GARCIA [facility] [id number] [facility] 2019-12-30 11:30:00 2019-12-30 11:30:00 Outpatient R QUINCY GARCIA [facility] [id number] [facility] 2019-12-14 15:30:00 2019-12-14 15:30:00 Outpatient R QUINCY GARCIA [facility] [id number] [facility] 2019-12-07 09:45:00 2019-12-07 09:45:00 Outpatient R QUINCY GARCIA [facility] [id number] [facility] 2019-12-02 10:00:00 2019-12-02 10:00:00 Outpatient R [facility] [id number] [facility] 2019-12-01 08:00:00 2019-12-01 08:00:00 Outpatient R [facility] [id number] [facility] 2019-11-30 13:00:00 2019-11-30 13:00:00 Outpatient R GARCIA QUINCY [facility] [id number] [facility] 2019-11-30 13:00:00 2019-11-30 13:00:00 Outpatient R QUINCY GARCIA [facility] [id number] [facility] 2019-11-24 13:30:00 2019-11-24 13:30:00 Outpatient R SAMUEL CARDOZO [facility] [id number] [facility] 2019-11-24 10:30:00 2019-11-24 10:30:00 Outpatient P [facility] [id number] [facility] 2019-11-09 13:00:00 2019-11-09 13:00:00 Outpatient R [facility] [id number] [facility] 2019-11-03 11:00:00 2019-11-03 11:00:00 Outpatient P [facility] [id number] [facility] 2019-10-30 09:30:00 2019-10-30 09:30:00 Outpatient R VIOLETTA GUTHRIE MICHAEL [facility] [id number] [facility] 2019-10-19 14:00:00 2019-10-19 14:00:00 Outpatient R [facility] [id number] [facility] 2019-07-31 13:22:41 2019-07-31 16:21:00 Emergency X DOMINGA WILKINSEVANHanna [facility] ERT [id number] [facility] Results Test Description Test Time Test Comments Results Result Co mments Source [facility] Hemoglobin A1C [id number] 14:58:00* Test Item Value Reference Range Interpretation Comme [facility] POCT HBA1C (test code = 4548-4) 6.5 % 4-6 A Lab Interpretation (test cod e = 71752-0) Abnormal [facility] Hemoglobin A1C [id number] 18:32:00* Test Item Value Reference Range Interpretation Comme [facility] POCT HBA1C (test code = 4548-4) 6.4 % 4-6 A Lab Interpretation (test cod e = 28787-2) Abnormal [facility] Hemoglobin A1C [id number] 18:32:00* Test Item Value Reference Range Interpretation Comme [facility] POCT HBA1C (test code = 4548-4) 6.4 % 4-6 A Lab Interpretation (test cod e = 46414-3) Abnormal [facility] Notes Date/Time Note Provider Source 2024-12-14 13:33:07 Candace Moraes is a 34 year old female and is calling about a dog bite she got 3 days ago. Declined triage and wanted to make an appt for tomorrow 12/15/[address] Monreal. Benita Reyes [facility] 2024-11-17 23:39:51 Rx sent [facility] 2024-11-17 06:12:28 Yours? -FAMILY MEDICINE STAFF [facility] 2024-11-16 16:13:39 Please review and advise. BRYANT 11/11/24 NOV 05/18/25 [facility] 2024-11-16 15:01:36 Candace Moraes is a 34 year old female Pt is calling asking for to send a prescription to her pharmacy for vitamin D. Pt states she is not able to pay for the medication so she needs a prescription. Please advise. [phone] ([place]) ECOLOGICAL TECHNICAL [place]IC[place] [facility] Carole Bess [facility] 2024-11-11 11:30:00 Images from the original note were not included. Venipuncture collection performed by clean technique on the left anticubitus. Total of 1 attempts were made. Slight pressure and a bandage/dressing were applied to the site(s). The patient experienced no complications. The following specimens were processed according to instructions and sent to [facility] laboratories per lab order on 11/11/2024 : LT BLUE SST 2 RED LAV 2 PPT DK GREEN (LiHep) DK GREEN (SodH) ORTEGA DK BLUE (K2) DK BLUE (S) ACD Blood Culture NIPT/NTD [facility] 2024-10-15 10:30:10 Please review and sign if appropriate: Last office visit: 08/26/24 Next office visit: 11/04/24 Requested Prescriptions Pending Prescriptions Disp Refills METFORMIN ER 500 mg 24 hr tablet [Pharmacy Med Name: METFORMIN ER 500 MG TABLET] 60 tablet 0 Sig: TAKE 2 TABLETS BY MOUTH EVERY MORNING WITH FOOD Last refill date: 08/26/24 Labs: HGB A1C (%) Date Value 08/28/2023 6.7 (H) CREATININE (mg/dL) Date Value 08/28/2023 0.73 Notes: Diagnoses of Type 2 diabetes mellitus without complication, with long-term current use of insulin and Medication refill were pertinent to this visit. ICAL NURSING INSTRUCTOR [facility] 2024-10-13 10:27:17 Requested Prescriptions Pending Prescriptions Disp Refills adalimumab (HUMIRA,CF, PEN) 40 mg/0.4 mL injection 2 Pen 12 Sig: inject 1 Pen under the skin every 2 (two) weeks. Provider Review 2 Failed - 10/13/2024 10:16 AM Failed - This refill cannot be delegated Passed - Valid encounter within last 12 months Recent Visits Date Type Provider Dept 08/26/24 Office Visit Jada Rose PA [facility] 04/16/24 Office Visit Hilary Mi MD [facility] 01/17/24 Office Visit [place], Pooja M, MD [facility] Showing recent visits within past 365 days and meeting all other requirements Future Appointments Date Type Provider Dept 10/26/24 Appointment José Luis Weems MD [facility] Showing future appointments within next 365 days and meeting all other requirements Recent Visits Date Type Provider Dept 08/26/24 Office Visit Jada Rose PA [facility] 04/16/24 Office Visit Hilary Mi MD [facility] 01/17/24 Office Visit Pooja Russell MD [facility] Showing recent visits within past 365 days and meeting all other requirements Future Appointments Date Type Provider Dept 10/26/24 Appointment José Luis Weems MD [facility] Showing future appointments within next 365 days and meeting all other requirements Refill request denied. BRYANT was over 1 year ago. PT will need to be seen in clinic before medications can be prescribed again. Brianna Mustafa [employer] [facility] 10/13/2024 10:27 AM [facility] D[facility]at[facility] ICAL NURSING INSTRUCTOR Brianna Mustafa [facility] - Health 2024-09-07 08:12:28 Requested Prescriptions Pending Prescriptions Disp Refills adalimumab (HUMIRA,CF, PEN) 40 mg/0.4 mL injection 2 Pen 12 Sig: inject 1 Pen under the skin every 2 (two) weeks. Provider Review 2 Failed - 09/04/2024 9:07 AM Failed - This refill cannot be delegated Passed - Valid encounter within last 12 months Recent Visits Date Type Provider Dept 08/26/24 Office Visit Jada Rose PA [facility] 04/16/24 Office Visit Hilary Mi MD [facility] 01/17/24 Office Visit Pooja Russell MD [facility] Showing recent visits within past 365 days and meeting all other requirements Future Appointments Date Type Provider Dept 11/16/24 Appointment Hilary Mi MD [facility] 11/16/24 Appointment Hilary Mi MD [facility] Showing future appointments within next 365 days and meeting all other requirements Recent Visits Date Type Provider Dept 08/26/24 Office Visit Jada Rose PA [facility] 04/16/24 Office Visit Hilary Mi MD [facility] 01/17/24 Office Visit Pooja Russell MD [facility] Showing recent visits within past 365 days and meeting all other requirements Future Appointments Date Type Provider Dept 11/16/24 Appointment Hilary Mi MD [facility] 11/16/24 Appointment Hilary Mi MD [facility] Showing future appointments within next 365 days and meeting all other requirements Refill request denied. BRYANT was over 1 year ago. PT will need to be seen in clinic before medications can be prescribed again. Brianna Mustafa LVN 09/07/2024 8:12 AM [facility] Dermat[facility] ICAL NURSING INSTRUCTOR Brianna Mustafa [facility] 2024-08-27 10:38:57 Notified patient that she is unable to take diflucan like she wanted because it interacts with her medications per SHELLI Reeves. Patient verbalized understanding ICAL NURSING INSTRUCTOR Amy Mcclain MA [facility] 2024-08-26 14:34:10 Candace Moraes is a 34 year old female Calling in requesting to speak with medical professional to discuss econazole nitrate 1 % cream. Pt states that she would like the pills instead of the cream. Please address and advise. [phone] (home) ICAL NURSING INSTRUCTOR Jaya Dewey [facility] 2024-08-26 12:21:16 Patient was seen today, is requesting to speak to a nurse regarding her medication econazole nitrate 1 % cream. She would like the pills instead of the cream. Please advise. N Dale [facility] 2024-08-17 14:14:23 Name: Candace Moraes Date: 08/18/2024 Status: [facility] Arrival Time: 12:45 PM Length: 20 Visit Type: FOLLOW-UP VISIT [42] Copay: Provider: Hilary Mi MD Department: [facility] Deedee Elkins [facility] 2024-08-17 13:47:53 Please assist with scheduling an OB office visit per Dr Mi. Thank you. [facility] 2024-08-17 13:45:35 We can OB the last 1/2 of a 40 min slot tomorrow. Best, Dr. Mi [facility] 2024-08-17 13:42:09 Please review and advise if OB appt is recommended. BRYANT 04/16/24 NOV -Rose [facility] 2024-08-14 16:54:30 Patient is requesting a call from the clinic in regards to wanting an appointment with Dr. Sana ROJO for a follow up to discuss diabetes. [facility] Kirill Akbar [facility] 2024-07-09 15:38:50 Spoke with patient and scheduled follow up 07/23/24. Offered sooner and patient declined. Patient requested refill of Humira. I advised patient she needs to be seen for follow up and lab work needs to be completed before the Humira can be refilled. N Jiang RN [facility] 2024-07-09 09:21:51 Please assist with scheduling a sooner office visit with Dr Mi. Thank you. [facility] 2024-07-09 09:20:59 Detailed VM with callback number left notifying patient of all. [facility] 2024-07-08 11:18:20 Attempted to contact. Left message to call back. N Toscano RN [facility] 2024-07-07 16:42:32 I resent the lantus. She can start on 5 mg and slowly increase the dose pending on her sugars. Please schedule follow up visit [facility] 2024-07-07 10:33:58 BRYANT 04/16/24, please advise if you would like pt to come in for office visit. N Kinsey MA [facility] 2024-07-06 16:20:51 Candace Moraes is a 34 year old female Pt called and is requesting to get back on insulin. She states that her blood sugar has been increasing. She states that it has been in the 200-300 and has been going on for a while. Declined to speak with AC nurse, she is currently feeling fine. ICAL NURSING INSTRUCTOR Omayra Armenta [facility] 2024-06-19 09:01:25 The patient would like to confirm whether her control is effective up to the procedure scheduled for July 10. Sheila Juarez [facility] 2024-06-04 13:23:[address] Mi the highest dose she will prescribe is the 21 mg. She verbalized understanding Jeannette Martinez LVN 06/04/2024 1:24 PM Jeannette Martinez [employer] [facility] 2024-06-04 12:35:44 Pt is returning a call from Evelia. Carole Bess [facility] 2024-06-04 07:37:59 Attempted to contact patient. No answer. Unable to leave voicemail. Jeannette Martinez LVN 06/04/2024 7:38 AM [facility] 2024-06-04 05:34:20 21 mg is the highest dose they make that I prescribe. [facility] 2024-06-03 15:09:34 Please review and advise T [facility] 2024-06-03 15:07:06 Candace Moraes is a 34 year old female Pt is calling request to change her nicotine patches to 42mg. Pt states current patches are not helping. Please advise. [phone] (home) [facility] 2024-05-18 13:06:56 Patient notified RX sent. No further needs were voiced. [facility] 2024-05-18 12:21:[address] Leonidas Mcneill T [facility] 2024-05-15 15:47:26 Candace Moraes is a 34 year old female Pt calling in to f/u on nicotine patch. Please assist and contact pt. There are no phone numbers on file. Verónica Mclaughlin [facility] 2024-05-14 13:38:39 Patient stated that her insurance has covered this prescription in the past and requested it be sent to [facility] in [place]. She stated is currently smoking 1 pack per day and requesting a RX for Nicotine Patches 21mg. [facility] 2024-05-14 06:50:23 Nicotine patches are otc -FAMILY MEDICINE STAFF [facility] 2024-05-11 10:43:52 Please review and advise. BRYANT 04/16/24 [facility] 2024-05-11 09:44:00 Patient is requesting a prescription for Nicotine patches. Patient would like Patches ALIA. Patient has a follow up visit schedule for 08/25/24. Please send patches to [facility] [place], [place] - [address] Kho:. Please call patient when patches are sent to pharmacy. Kirill Akbar [facility] 2024-04-21 14:04:52 Please review and advise. [facility] 2024-04-21 13:02:09 Candace Moraes is a 33 year old female Kamlesh with [facility] pharmacy called because the direction for the Ozempic Rx needs clarification. It said infection 1 mg and its a 2 mg dosage. Please advise. Vijay Wellington [facility] 2024-04-03 12:12:30 Summary: [facility] Monthly Clinical Assessment After reviewing the results of the administered survey, it is appropriate to continue the medication as prescribed. The [facility] will refill the medication and continue to follow this patient and address any concerns that arise while on therapy with Humira. Thank you, Nimo Mishra [facility] Nimo Mishra [facility] 2024-04-02 12:22:07 [facility] Monthly Clinical Refill Assessment Candace Moraes is a 33 year old female who is followed by the [facility] specialty pharmacy service for Humira. Am I speaking with the patient? Yes Have you missed any doses since the last fill? No Were any of the medications discontinued? No Have any changes been made to the medication, dose, or instructions on how to take it? No Have you started taking any new medications, herbals, or supplements? No Have you been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
--- NOTE | 2024-12-15 10:51 | EDPHYS ---
Physician Documentation [facility] Name: Wendi Oglesby Age: 34 yrs Sex: Female : 1990 Arrival Date: 12/15/2024 Time: 10:31 Bed 12 Private MD: ED Physician Louis Rodriguez HPI: 12/15 10:53 This 34 yrs old Female presents to ER via Ambulatory with complaints of foot problem, ms3 Dog Bite. 10:53 34-year-old female with past medical history of anxiety, autoimmune disorder, bipolar, ms3 depression, OCD, osteoarthritis presents to the emergency department status post dog bite to her left small finger. Patient states the bite occurred 3 to 4 days ago. She denies any alleviating or inciting factors. Patient states she is concerned the wound is getting infected.. Historical: - Allergies: 10:44 Codeine; ap3 10:44 PENICILLINS; ap3 - PMHx: 10:44 Anxiety; Auto Immune; Bipolar disorder; Depression; [place]; ocd; osteoarthritis; ap3 Personality Disorder; - Immunization history:: Adult Immunizations unknown. - Infectious Disease History:: Denies. - Social history:: Smoking status: unknown. ROS: 10:53 Constitutional: Negative for fever, and chills. Cardiovascular: Negative for chest ms3 pain, and palpitations. Respiratory: Negative for shortness of breath, cough, wheezing, and pleuritic chest pain, Abdomen/GI: Negative for abdominal pain, nausea, vomiting, diarrhea, and constipation, 10:53 Skin: Positive for erythema, swelling, of the left little finger, Exam: 10:53 Constitutional: This is a well developed, well nourished patient who is awake, alert, ms3 and in no acute distress. Cardiovascular: Regular rate and rhythm with a normal S1 and S2. No gallops, murmurs, or rubs. Normal PMI, no JVD. No pulse deficits. Respiratory: Lungs have equal breath sounds bilaterally, clear to auscultation and percussion. No rales, rhonchi or wheezes noted. No increased work of breathing, no retractions or nasal flaring. Abdomen/GI: Soft, non-tender, with normal bowel sounds. No distension or tympany. No guarding or rebound. No evidence of tenderness throughout. 10:53 Skin: cellulitis, that is mild, on the left little finger, injury, abrasion(s), very small abrasion noted, of the left little finger, Vital Signs: 10:41 BP 119 / 83; Pulse 89; Resp 17; Temp 97.7(O); Pulse Ox 100% ; Pain 3/10; ap3 10:41 Pain Scale: Adult ap3 MDM: 10:49 Medical Screening Exam initiated ms3 10:53 Differential diagnosis: cellulitis, Abrasion. Data reviewed: vital signs, nurses notes. ms3 I considered the following discharge prescriptions or medication management in the emergency department Medications were administered in the Emergency Department. See MAR. Counseling: I had a detailed discussion with the patient and/or guardian regarding the historical points, exam findings, and any diagnostic results supporting the discharge/admit diagnosis, the need for outpatient follow up, to return to the emergency department if symptoms worsen or persist or if there are any questions or concerns that arise at home. Special discussion: I discussed with the patient/guardian in detail that at this point there is no indication for admission to the hospital. It is understood, however, that if the symptoms persist or worsen the patient needs to return immediately for re-evaluation. ED course: Discussed physical exam findings with patient. Patient given prescription for doxycycline. All questions were answered. Return precautions discussed include worsening symptoms, or any other concerns. Administered Medications: 11:03 Drug: Boostrix Tdap IM 0.5 ml IM once; as a single dose Route: IM; Site: right deltoid; iw 11:03 Follow up: Response: (VIS) Vaccine information sheet provided today. Questions and/or iw concerns addressed. VIS edition date: Mar 24, 2021.; No adverse reaction Disposition Summary: 12/15/24 10:51 Discharge Ordered Notes: Location: Home ms3 Condition: Stable ms3 Diagnosis - Bitten by dog ms3 - Onychomycosis ms3 Followup: ms3 - With: Darrin Sanchez, DO - When: 2 - 3 days - Reason: Recheck today's complaints Discharge Instructions: - Discharge Summary Sheet ms3 - Animal Bite, Adult, [id number] ms3 Forms: - Medication Reconciliation Form ms3 - Antibiotic Education ms3 - Prescription Opioid Use ms3 - Patient Portal Instructions ms3 - Leadership Thank You Letter ms3 Prescriptions: - Doxycycline Hyclate 100 mg Oral Tablet - take 1 tablet ORAL route every 12 hours; 20 tablet; Refills: 0, Product ms3 Selection Permitted Signatures: Nati Rascon RN RN iw Mayda Carey RN RN ap3 Louis Rodriguez DO DO ms3
--- NOTE | 2024-12-15 10:51 | ER ---
Nurse's Notes [facility] Name: Wendi Oglesby Age: 34 yrs Sex: Female : 1990 Arrival Date: 12/15/2024 Time: 10:31 Bed 12 Private MD: Diagnosis: Bitten by dog;Onychomycosis Presentation: 12/15 10:41 Chief complaint: Patient states: she was bitten on the left pinky 3-4 days ago by her ap3 mother in laws dog and now feels like it might be infected. patient also believes that could possibly be a fungal infection on her toenails on both feet. patient currently rates her pain as a 3/10. Coronavirus screen: At this time, the client does not indicate any symptoms associated with coronavirus-19. Ebola Screen: No symptoms or risks identified at this time. Initial Sepsis Screen: Does the patient meet any 2 criteria? No. Patient's initial sepsis screen is negative. Does the patient have a suspected source of infection? No. Patient's initial sepsis screen is negative. Risk Assessment: Do you want to hurt yourself or someone else? Patient reports no desire to harm self or others. Onset of symptoms was December 11, 2024. 10:41 Method Of Arrival: Ambulatory ap3 10:41 Acuity: SAURAV 4 ap3 Triage Assessment: 10:45 Bite description: bite sustained to left little finger by a dog, animal information: ap3 vaccination(s) is unknown. General: Appears in no apparent distress. Behavior is calm, cooperative, appropriate for age. Pain: Complains of pain in left hand. Neuro: Level of Consciousness is awake, alert, obeys commands, Oriented to person, place, time, situation. Cardiovascular: Patient's skin is warm and dry. Respiratory: Airway is patent Respiratory effort is even, unlabored, Respiratory pattern is regular, symmetrical. Derm: Wound noted left little finger. Historical: - Allergies: 10:44 Codeine; ap3 10:44 PENICILLINS; ap3 - PMHx: 10:44 Anxiety; Auto Immune; Bipolar disorder; Depression; [place]; ocd; osteoarthritis; ap3 Personality Disorder; - Immunization history:: Adult Immunizations unknown. - Infectious Disease History:: Denies. - Social history:: Smoking status: unknown. Screenin:46 [facility] ED Fall Risk Assessment (Adult) History of falling in the last 3 months, ap3 including since admission No falls in past 3 months (0 pts) Confusion or Disorientation No (0 pts) Intoxicated or Sedated No (0 pts) Impaired Gait No (0 pts) Mobility Assist Device Used No (0 pt) Altered Elimination No (0 pt) Score/Fall Risk Level 0 - 2 = Low Risk Oriented to surroundings, Maintained a safe environment, Educated pt \T\ family on fall prevention, incl call for assistance when getting out of bed, Assessed \T\ reinforced patient's understanding of fall precautions, Hourly rounding (assess needs \T\ fall precautionary measures) done, Used ambulatory aids as needed (educated on \T\ assisted with). Abuse screen: Denies threats or abuse. Nutritional screening: No deficits noted. Tuberculosis screening: No symptoms or risk factors identified. Assessment: 10:46 Derm: Skin is healthy with good turgor, Skin is pink, warm \T\ dry. ap3 10:55 General: contacted [facility] animal control dispatch. ap3 Vital Signs: 10:41 BP 119 / 83; Pulse 89; Resp 17; Temp 97.7(O); Pulse Ox 100% ; Pain 3/10; ap3 10:41 Pain Scale: Adult ap3 ED Course: 10:36 Patient arrived in ED. al6 10:38 Louis Rodriguez DO is Attending Physician. ms3 10:44 Triage completed. ap3 10:46 Arm band placed on right wrist. ap3 10:46 Patient has correct armband on for positive identification. ap3 10:46 No provider procedures requiring assistance completed. Patient did not have IV access ap3 during this emergency room visit. 10:50 Darrin Sanchez DO is Referral Physician. ms3 10:55 Mayda Carey, RN is Primary Nurse. ap3 Administered Medications: 11:03 Drug: Boostrix Tdap IM 0.5 ml IM once; as a single dose Route: IM; Site: right deltoid; iw 11:03 Follow up: Response: (VIS) Vaccine information sheet provided today. Questions and/or iw concerns addressed. VIS edition date: Mar 24, 2021.; No adverse reaction Medication: 10:46 VIS not applicable for this client. ap3 Outcome: 10:51 Discharge ordered by . ms3 11:03 Discharged to home ambulatory, iw 11:03 Condition: good 11:03 Discharge instructions given to patient, Instructed on discharge instructions, follow up and referral plans. medication usage, Demonstrated understanding of instructions, follow-up care, medications, Prescriptions given X 1, 11:04 Patient left the ED. iw Signatures: Nati Rascon RN RN iw Mayda Carey RN RN ap3 Louis Rodriguez DO DO ms3 Alysa Lopez al6
[2024-12-15] MEDS ORDERED: TDAP (DIPHTH,PERTUSS(ACELL),TET VAC) 0.5 ML VIAL IMVAC ONE (10:57)
[2024-12-16 03:42] VITALS: BP 119/83; TEMP 97.7; O2SAT 100
== END 2024-12-15 11:04 | disposition home or self-care (01) ==
LOC: ER 10:31
DX: B35.1 Tinea unguium (principal); W54.0XXA Bitten by dog, initial encounter; Z23 Encounter for immunization
CPT/HCPCS: 90715